=== PATIENT | male | born 1970 | race Hispanic/Latino ===

== ENCOUNTER 2021-03-28 16:14 | Inpatient (IN) | payer OTHER, SELFPAY ==
[2021-03-28] MEDS ORDERED: LACTATED RINGERS 1,000 ML IV ONE ×3 (18:52→18:55)
[2021-03-28 19:07] LABS: Basophils % (Auto) 0.6 % (0.0-1.8); Eosinophils # (Auto) 0.1 K/mm3 (0.0-0.4); Eosinophils % (Auto) 1.3 % (0.0-4.3); Hematocrit 44.5 % (35.5-45.6); Lymphocytes # (Auto) 1.1 K/mm3 (1.2-5.4); Lymphocytes % (Auto) 21.8 % (13.4-35.0); Mean Corpuscular HGB Conc 34 % (32-34); Mean Corpuscular Volume 88 fl (84-94); Monocytes # (Auto) 0.4 K/mm3 (0.0-0.8); Monocytes % (Auto) 7.5 % (0.0-7.3); Platelet Count 227 K/mm3 (140-440); Red Blood Count 5.07 M/mm3 (3.65-5.03); Red Cell Distribution Width 13.5 % (13.2-15.2)
[2021-03-28 19:10] LABS: Bilirubin,Urine NEG (Negative); Blood,Urine NEG (Negative); Color,Urine Colorless (Yellow); Protein,Urine <15 mg/dL mg/dL (Negative); Urobilinogen,Urine < 2.0 mg/dL (<2.0); WBC,Urine < 1.0 /HPF (0.0-6.0)
[2021-03-28 19:34] LABS: Amphetamine Screen,Urine Negative; Benzodiazepines Screen,Urine Negative; Cannabinoid Screen,Urine Negative; Cocaine Screen,Urine Negative; Methadone Screen,Urine Negative; Opiate Screen,Urine Negative
[2021-03-28 19:35] LABS: Alanine Aminotransferase 31 units/L (7-56); Albumin 5.1 g/dL (3.9-5); Blood Urea Nitrogen 17 mg/dL (9-20); Calcium 10.7 mg/dL (8.4-10.2); Hemolysis Index 9
[2021-03-28 19:57] LABS: BUN/Creatinine Ratio 24
[2021-03-28] MEDS ORDERED: INSULIN REGULAR, HUMAN 100 UNITS/1 ML IV ONE (20:07)
--- NOTE | 2021-03-28 20:38 | Emergency Department Report ---
HPI - General Chief Complaint: Hyperglycemia Time Seen by Provider: 03/28/21 18:03 - HPI HPI: 50-year-old male with history of diabetes mellitus on insulin presents due to suicidal ideation. Patient states that he has been out of his insulin for the last month. He says that he has had worsening depression and wants to kill himself by cutting his wrists. He denies homicidal ideation, auditory hallucinations, or visual hallucinations. He also denies any physical complaints at this time other than those related to his chronic peripheral neuropathy. He denies any fever/chills, headache, vision change, lightheadedness, chest pain, shortness of breath, cough, abdominal pain, nausea/vomiting, dysuria, frequent urination, or any other complaints. ED Past Medical Hx - Past Medical History Previous Medical History?: Yes Hx Hypertension: Yes Hx Diabetes: Yes Hx Psychiatric Treatment: Yes - Surgical History Past Surgical History?: Yes Additional Surgical History: GB - Medications Home Medications: Home Medications Medication Instructions Recorded Confirmed Last Taken Type Cymbalta BID 03/29/21 03/29/21 09:00 History Gabapentin TID 03/29/21 03/28/21 History ED Review of Systems ROS: Stated complaint: ELEVATED BLOOD GLUCOSE Other details as noted in HPI Constitutional: denies: chills, fever Eyes: denies: eye pain, vision change ENT: denies: throat pain, congestion Respiratory: denies: cough, shortness of breath Cardiovascular: denies: chest pain, syncope Endocrine: denies: increased thirst, increased urine Gastrointestinal: denies: abdominal pain, nausea, vomiting Genitourinary: denies: dysuria Musculoskeletal: denies: back pain, myalgia Skin: denies: rash Neurological: denies: headache, weakness, numbness Psychiatric: depression, suicidal thoughts. denies: auditory hallucinations, visual hallucinations, homicidal thoughts Physical Exam - Physical Exam Vital Signs: Vital Signs 03/28/21 03/28/21 18:46 19:00 Pulse Rate 89 84 Respiratory 12 16 Rate Blood Pressure 130/93 135/81 [Right] O2 Sat by Pulse 97 96 Oximetry Physical Exam: GENERAL: Well developed and well nourished. No acute distress HEENT: Normocephalic. No obvious signs of trauma. Very dry mucous membranes. EYES: Extraocular movements are intact. Pupils are equal round and reactive to light bilaterally NECK: Supple. Trachea is midline. LUNGS: Nonlabored breathing. Equal chest rise bilaterally. Clear to auscultation bilaterally. HEART/CARDIOVASCULAR: Regular rate and rhythm. No murmurs or rubs. VASCULAR: 2+ peripheral pulses. ABDOMEN: Abdomen is soft and nondistended. There is no significant tenderness, guarding or rebound. SKIN: Skin is warm and dry NEURO: Patient is awake, alert, and oriented. 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 No focal deficits. Normal motor and sensory exam throughout with the exception of decreased sensation to light touch over bilateral distal lower extremities which is chronic and related to neuropathy according to the patient. Normal speech. MUSCULOSKELETAL: No obvious deformities. There is a left knee brace in place. No significant tenderness. . ED Course Vital Signs 03/28/21 03/28/21 18:46 19:00 Pulse Rate 89 84 Respiratory 12 16 Rate Blood Pressure 130/93 135/81 [Right] O2 Sat by Pulse 97 96 Oximetry ED Medical Decision Making - Lab Data Result diagrams: 03/28/21 18:52 03/29/21 05:22 Lab Results 03/28/21 03/28/21 03/28/21 Range/Units 08:27 16:28 18:50 WBC (4.5-11.0) K/mm3 RBC (3.65-5.03) M/mm3 Hgb (11.8-15.2) gm/dl Hct (35.5-45.6) % MCV (84-94) fl MCH (28-32) pg MCHC (32-34) % RDW (13.2-15.2) % Plt Count (140-440) K/mm3 Lymph % (Auto) (13.4-35.0) % [place] % (Auto) (0.0-7.3) % Eos % (Auto) (0.0-4.3) % Baso % (Auto) (0.0-1.8) % Lymph # (Auto) (1.2-5.4) K/mm3 [place] # (Auto) (0.0-0.8) K/mm3 Eos # (Auto) (0.0-0.4) K/mm3 Baso # (Auto) (0.0-0.1) K/mm3 Seg Neutrophils % (40.0-70.0) % Seg Neutrophils # (1.8-7.7) K/mm3 VBG pH (7.320-7.420) Sodium 130 L (137-145) mmol/L Potassium 4.8 (3.6-5.0) mmol/L Chloride 87.7 L (98-107) mmol/L Carbon Dioxide 26 (22-30) mmol/L Anion Gap 21 mmol/L BUN 17 (9-20) mg/dL Creatinine 0.7 L (0.8-1.3) mg/dL Estimated GFR > 60 ml/min BUN/Creatinine Ratio 24 % Glucose 647 H* (75-100) mg/dL POC Glucose > 600 H (70-105) mg/dL Hemoglobin A1c (4-6) % Ketones Quantitative (Negative) Calcium 10.7 H (8.4-10.2) mg/dL Phosphorus (2.5-4.5) mg/dL Magnesium (1.7-2.3) mg/dL Total Bilirubin 0.30 (0.1-1.2) mg/dL AST 23 (5-40) units/L ALT 31 (7-56) units/L Alkaline Phosphatase 265 H (35-129) units/L Total Protein 8.3 H (6.3-8.2) g/dL Albumin 5.1 H (3.9-5) g/dL Albumin/Globulin Ratio 1.6 % Urine Color (Yellow) Urine Turbidity (Clear) Urine pH (5.0-7.0) Ur Specific Sylvester (1.003-1.030) Urine Protein (Negative) mg/dL Urine Glucose (UA) (Negative) mg/dL Urine Ketones (Negative) mg/dL Urine Blood (Negative) Urine Nitrite (Negative) Urine Bilirubin (Negative) Urine Urobilinogen (<2.0) mg/dL Ur Leukocyte Esterase (Negative) Urine WBC (Auto) (0.0-6.0) /HPF Urine RBC (Auto) (0.0-6.0) /HPF Salicylates (2.8-20.0) mg/dL Urine Opiates Screen Urine Methadone Screen Acetaminophen (10.0-30.0) ug/mL Ur Barbiturates Screen Ur Phencyclidine Scrn Ur Amphetamines Screen U Benzodiazepines Scrn Urine Cocaine Screen U Marijuana (THC) Screen Drugs of Abuse Note Plasma/Serum Alcohol (0-0.07) % Coronavirus (PCR) Negative (Negative) 03/28/21 03/28/21 03/28/21 Range/Units 18:52 18:52 18:52 WBC 5.0 (4.5-11.0) K/mm3 RBC 5.07 H (3.65-5.03) M/mm3 Hgb 15.0 (11.8-15.2) gm/dl Hct 44.5 (35.5-45.6) % MCV 88 (84-94) fl MCH 30 (28-32) pg MCHC 34 (32-34) % RDW 13.5 (13.2-15.2) % Plt Count 227 (140-440) K/mm3 Lymph % (Auto) 21.8 (13.4-35.0) % [place] % (Auto) 7.5 H (0.0-7.3) % Eos % (Auto) 1.3 (0.0-4.3) % Baso % (Auto) 0.6 (0.0-1.8) % Lymph # (Auto) 1.1 L (1.2-5.4) K/mm3 [place] # (Auto) 0.4 (0.0-0.8) K/mm3 Eos # (Auto) 0.1 (0.0-0.4) K/mm3 Baso # (Auto) 0.0 (0.0-0.1) K/mm3 Seg Neutrophils % 68.8 (40.0-70.0) % Seg Neutrophils # 3.4 (1.8-7.7) K/mm3 VBG pH (7.320-7.420) Sodium (137-145) mmol/L Potassium (3.6-5.0) mmol/L Chloride (98-107) mmol/L Carbon Dioxide (22-30) mmol/L Anion Gap mmol/L BUN (9-20) mg/dL Creatinine (0.8-1.3) mg/dL Estimated GFR ml/min BUN/Creatinine Ratio % Glucose (75-100) mg/dL POC Glucose (70-105) mg/dL Hemoglobin A1c (4-6) % Ketones Quantitative (Negative) Calcium (8.4-10.2) mg/dL Phosphorus (2.5-4.5) mg/dL Magnesium (1.7-2.3) mg/dL Total Bilirubin (0.1-1.2) mg/dL AST (5-40) units/L ALT (7-56) units/L Alkaline Phosphatase (35-129) units/L Total Protein (6.3-8.2) g/dL Albumin (3.9-5) g/dL Albumin/Globulin Ratio % Urine Color Colorless (Yellow) Urine Turbidity Clear (Clear) Urine pH 5.0 (5.0-7.0) Ur Specific Sylvester 1.027 (1.003-1.030) Urine Protein <15 mg/dl (Negative) mg/dL Urine Glucose (UA) >=500 (Negative) mg/dL Urine Ketones 20 (Negative) mg/dL Urine Blood Neg (Negative) Urine Nitrite Neg (Negative) Urine Bilirubin Neg (Negative) Urine Urobilinogen < 2.0 (<2.0) mg/dL Ur Leukocyte Esterase Neg (Negative) Urine WBC (Auto) < 1.0 (0.0-6.0) /HPF Urine RBC (Auto) 1.0 (0.0-6.0) /HPF Salicylates (2.8-20.0) mg/dL Urine Opiates Screen Negative Urine Methadone Screen Negative Acetaminophen (10.0-30.0) ug/mL Ur Barbiturates Screen Negative Ur Phencyclidine Scrn Negative Ur Amphetamines Screen Negative U Benzodiazepines Scrn Negative Urine Cocaine Screen Negative U Marijuana (THC) Screen Negative Drugs of Abuse Note Disclamer Plasma/Serum Alcohol (0-0.07) % Coronavirus (PCR) (Negative) 03/28/21 03/28/21 03/28/21 Range/Units 18:52 18:52 18:52 WBC (4.5-11.0) K/mm3 RBC (3.65-5.03) M/mm3 Hgb (11.8-15.2) gm/dl Hct (35.5-45.6) % MCV (84-94) fl MCH (28-32) pg MCHC (32-34) % RDW (13.2-15.2) % Plt Count (140-440) K/mm3 Lymph % (Auto) (13.4-35.0) % [place] % (Auto) (0.0-7.3) % Eos % (Auto) (0.0-4.3) % Baso % (Auto) (0.0-1.8) % Lymph # (Auto) (1.2-5.4) K/mm3 [place] # (Auto) (0.0-0.8) K/mm3 Eos # (Auto) (0.0-0.4) K/mm3 Baso # (Auto) (0.0-0.1) K/mm3 Seg Neutrophils % (40.0-70.0) % Seg Neutrophils # (1.8-7.7) K/mm3 VBG pH (7.320-7.420) Sodium (137-145) mmol/L Potassium (3.6-5.0) mmol/L Chloride (98-107) mmol/L Carbon Dioxide (22-30) mmol/L Anion Gap mmol/L BUN (9-20) mg/dL Creatinine (0.8-1.3) mg/dL Estimated GFR ml/min BUN/Creatinine Ratio % Glucose (75-100) mg/dL POC Glucose (70-105) mg/dL Hemoglobin A1c (4-6) % Ketones Quantitative (Negative) Calcium (8.4-10.2) mg/dL Phosphorus (2.5-4.5) mg/dL Magnesium (1.7-2.3) mg/dL Total Bilirubin (0.1-1.2) mg/dL AST (5-40) units/L ALT (7-56) units/L Alkaline Phosphatase (35-129) units/L Total Protein (6.3-8.2) g/dL Albumin (3.9-5) g/dL Albumin/Globulin Ratio % Urine Color (Yellow) Urine Turbidity (Clear) Urine pH (5.0-7.0) Ur Specific Sylvester (1.003-1.030) Urine Protein (Negative) mg/dL Urine Glucose (UA) (Negative) mg/dL Urine Ketones (Negative) mg/dL Urine Blood (Negative) Urine Nitrite (Negative) Urine Bilirubin (Negative) Urine Urobilinogen (<2.0) mg/dL Ur Leukocyte Esterase (Negative) Urine WBC (Auto) (0.0-6.0) /HPF Urine RBC (Auto) (0.0-6.0) /HPF Salicylates < 0.3 L (2.8-20.0) mg/dL Urine Opiates Screen Urine Methadone Screen Acetaminophen 5.0 L (10.0-30.0) ug/mL Ur Barbiturates Screen Ur Phencyclidine Scrn Ur Amphetamines Screen U Benzodiazepines Scrn Urine Cocaine Screen U Marijuana (THC) Screen Drugs of Abuse Note Plasma/Serum Alcohol < 0.01 (0-0.07) % Coronavirus (PCR) (Negative) 03/28/21 03/28/21 03/28/21 Range/Units 18:52 18:52 21:01 WBC (4.5-11.0) K/mm3 RBC (3.65-5.03) M/mm3 Hgb (11.8-15.2) gm/dl Hct (35.5-45.6) % MCV (84-94) fl MCH (28-32) pg MCHC (32-34) % RDW (13.2-15.2) % Plt Count (140-440) K/mm3 Lymph % (Auto) (13.4-35.0) % [place] % (Auto) (0.0-7.3) % Eos % (Auto) (0.0-4.3) % Baso % (Auto) (0.0-1.8) % Lymph # (Auto) (1.2-5.4) K/mm3 [place] # (Auto) (0.0-0.8) K/mm3 Eos # (Auto) (0.0-0.4) K/mm3 Baso # (Auto) (0.0-0.1) K/mm3 Seg Neutrophils % (40.0-70.0) % Seg Neutrophils # (1.8-7.7) K/mm3 VBG pH 7.299 L (7.320-7.420) Sodium (137-145) mmol/L Potassium (3.6-5.0) mmol/L Chloride (98-107) mmol/L Carbon Dioxide (22-30) mmol/L Anion Gap mmol/L BUN (9-20) mg/dL Creatinine (0.8-1.3) mg/dL Estimated GFR ml/min BUN/Creatinine Ratio % Glucose (75-100) mg/dL POC Glucose (70-105) mg/dL Hemoglobin A1c (4-6) % Ketones Quantitative Small (Negative) Calcium (8.4-10.2) mg/dL Phosphorus 3.00 (2.5-4.5) mg/dL Magnesium 1.70 (1.7-2.3) mg/dL Total Bilirubin (0.1-1.2) mg/dL AST (5-40) units/L ALT (7-56) units/L Alkaline Phosphatase (35-129) units/L Total Protein (6.3-8.2) g/dL Albumin (3.9-5) g/dL Albumin/Globulin Ratio % Urine Color (Yellow) Urine Turbidity (Clear) Urine pH (5.0-7.0) Ur Specific Sylvester (1.003-1.030) Urine Protein (Negative) mg/dL Urine Glucose (UA) (Negative) mg/dL Urine Ketones (Negative) mg/dL Urine Blood (Negative) Urine Nitrite (Negative) Urine Bilirubin (Negative) Urine Urobilinogen (<2.0) mg/dL Ur Leukocyte Esterase (Negative) Urine WBC (Auto) (0.0-6.0) /HPF Urine RBC (Auto) (0.0-6.0) /HPF Salicylates (2.8-20.0) mg/dL Urine Opiates Screen Urine Methadone Screen Acetaminophen (10.0-30.0) ug/mL Ur Barbiturates Screen Ur Phencyclidine Scrn Ur Amphetamines Screen U Benzodiazepines Scrn Urine Cocaine Screen U Marijuana (THC) Screen Drugs of Abuse Note Plasma/Serum Alcohol (0-0.07) % Coronavirus (PCR) (Negative) 03/28/21 03/28/21 03/28/21 Range/Units 21:01 22:33 23:00 WBC (4.5-11.0) K/mm3 RBC (3.65-5.03) M/mm3 Hgb (11.8-15.2) gm/dl Hct (35.5-45.6) % MCV (84-94) fl MCH (28-32) pg MCHC (32-34) % RDW (13.2-15.2) % Plt Count (140-440) K/mm3 Lymph % (Auto) (13.4-35.0) % [place] % (Auto) (0.0-7.3) % Eos % (Auto) (0.0-4.3) % Baso % (Auto) (0.0-1.8) % Lymph # (Auto) (1.2-5.4) K/mm3 [place] # (Auto) (0.0-0.8) K/mm3 Eos # (Auto) (0.0-0.4) K/mm3 Baso # (Auto) (0.0-0.1) K/mm3 Seg Neutrophils % (40.0-70.0) % Seg Neutrophils # (1.8-7.7) K/mm3 VBG pH (7.320-7.420) Sodium 136 L 136 L (137-145) mmol/L Potassium 3.5 L D 3.5 L (3.6-5.0) mmol/L Chloride 98.0 98 (98-107) mmol/L Carbon Dioxide 29 29 (22-30) mmol/L Anion Gap 13 13 mmol/L BUN 14 14 (9-20) mg/dL Creatinine 0.6 L 0.6 L (0.8-1.3) mg/dL Estimated GFR > 60 > 60 ml/min BUN/Creatinine Ratio 23 23 % Glucose 287 H 287 H (75-100) mg/dL POC Glucose 234 H (70-105) mg/dL Hemoglobin A1c (4-6) % Ketones Quantitative (Negative) Calcium 9.2 9.2 (8.4-10.2) mg/dL Phosphorus (2.5-4.5) mg/dL Magnesium (1.7-2.3) mg/dL Total Bilirubin (0.1-1.2) mg/dL AST (5-40) units/L ALT (7-56) units/L Alkaline Phosphatase (35-129) units/L Total Protein (6.3-8.2) g/dL Albumin (3.9-5) g/dL Albumin/Globulin Ratio % Urine Color (Yellow) Urine Turbidity (Clear) Urine pH (5.0-7.0) Ur Specific Sylvester (1.003-1.030) Urine Protein (Negative) mg/dL Urine Glucose (UA) (Negative) mg/dL Urine Ketones (Negative) mg/dL Urine Blood (Negative) Urine Nitrite (Negative) Urine Bilirubin (Negative) Urine Urobilinogen (<2.0) mg/dL Ur Leukocyte Esterase (Negative) Urine WBC (Auto) (0.0-6.0) /HPF Urine RBC (Auto) (0.0-6.0) /HPF Salicylates (2.8-20.0) mg/dL Urine Opiates Screen Urine Methadone Screen Acetaminophen (10.0-30.0) ug/mL Ur Barbiturates Screen Ur Phencyclidine Scrn Ur Amphetamines Screen U Benzodiazepines Scrn Urine Cocaine Screen U Marijuana (THC) Screen Drugs of Abuse Note Plasma/Serum Alcohol (0-0.07) % Coronavirus (PCR) (Negative) 03/29/21 03/29/21 03/29/21 Range/Units 04:12 05:22 05:22 WBC (4.5-11.0) K/mm3 RBC (3.65-5.03) M/mm3 Hgb (11.8-15.2) gm/dl Hct (35.5-45.6) % MCV (84-94) fl MCH (28-32) pg MCHC (32-34) % RDW (13.2-15.2) % Plt Count (140-440) K/mm3 Lymph % (Auto) (13.4-35.0) % [place] % (Auto) (0.0-7.3) % Eos % (Auto) (0.0-4.3) % Baso % (Auto) (0.0-1.8) % Lymph # (Auto) (1.2-5.4) K/mm3 [place] # (Auto) (0.0-0.8) K/mm3 Eos # (Auto) (0.0-0.4) K/mm3 Baso # (Auto) (0.0-0.1) K/mm3 Seg Neutrophils % (40.0-70.0) % Seg Neutrophils # (1.8-7.7) K/mm3 VBG pH (7.320-7.420) Sodium 139 (137-145) mmol/L Potassium 4.2 (3.6-5.0) mmol/L Chloride 100.8 (98-107) mmol/L Carbon Dioxide 27 (22-30) mmol/L Anion Gap 15 mmol/L BUN 14 (9-20) mg/dL Creatinine 0.5 L (0.8-1.3) mg/dL Estimated GFR > 60 ml/min BUN/Creatinine Ratio 28 % Glucose 261 H (75-100) mg/dL POC Glucose 245 H (70-105) mg/dL Hemoglobin A1c 13.3 H (4-6) % Ketones Quantitative (Negative) Calcium 8.9 (8.4-10.2) mg/dL Phosphorus 2.80 (2.5-4.5) mg/dL Magnesium 1.50 L (1.7-2.3) mg/dL Total Bilirubin (0.1-1.2) mg/dL AST (5-40) units/L ALT (7-56) units/L Alkaline Phosphatase (35-129) units/L Total Protein (6.3-8.2) g/dL Albumin (3.9-5) g/dL Albumin/Globulin Ratio % Urine Color (Yellow) Urine Turbidity (Clear) Urine pH (5.0-7.0) Ur Specific Sylvester (1.003-1.030) Urine Protein (Negative) mg/dL Urine Glucose (UA) (Negative) mg/dL Urine Ketones (Negative) mg/dL Urine Blood (Negative) Urine Nitrite (Negative) Urine Bilirubin (Negative) Urine Urobilinogen (<2.0) mg/dL Ur Leukocyte Esterase (Negative) Urine WBC (Auto) (0.0-6.0) /HPF Urine RBC (Auto) (0.0-6.0) /HPF Salicylates (2.8-20.0) mg/dL Urine Opiates Screen Urine Methadone Screen Acetaminophen (10.0-30.0) ug/mL Ur Barbiturates Screen Ur Phencyclidine Scrn Ur Amphetamines Screen U Benzodiazepines Scrn Urine Cocaine Screen U Marijuana (THC) Screen Drugs of Abuse Note Plasma/Serum Alcohol (0-0.07) % Coronavirus (PCR) (Negative) 03/29/21 03/29/21 Range/Units 07:56 10:57 WBC (4.5-11.0) K/mm3 RBC (3.65-5.03) M/mm3 Hgb (11.8-15.2) gm/dl Hct (35.5-45.6) % MCV (84-94) fl MCH (28-32) pg MCHC (32-34) % RDW (13.2-15.2) % Plt Count (140-440) K/mm3 Lymph % (Auto) (13.4-35.0) % [place] % (Auto) (0.0-7.3) % Eos % (Auto) (0.0-4.3) % Baso % (Auto) (0.0-1.8) % Lymph # (Auto) (1.2-5.4) K/mm3 [place] # (Auto) (0.0-0.8) K/mm3 Eos # (Auto) (0.0-0.4) K/mm3 Baso # (Auto) (0.0-0.1) K/mm3 Seg Neutrophils % (40.0-70.0) % Seg Neutrophils # (1.8-7.7) K/mm3 VBG pH (7.320-7.420) Sodium (137-145) mmol/L Potassium (3.6-5.0) mmol/L Chloride (98-107) mmol/L Carbon Dioxide (22-30) mmol/L Anion Gap mmol/L BUN (9-20) mg/dL Creatinine (0.8-1.3) mg/dL Estimated GFR ml/min BUN/Creatinine Ratio % Glucose (75-100) mg/dL POC Glucose 253 H 279 H (70-105) mg/dL Hemoglobin A1c (4-6) % Ketones Quantitative (Negative) Calcium (8.4-10.2) mg/dL Phosphorus (2.5-4.5) mg/dL Magnesium (1.7-2.3) mg/dL Total Bilirubin (0.1-1.2) mg/dL AST (5-40) units/L ALT (7-56) units/L Alkaline Phosphatase (35-129) units/L Total Protein (6.3-8.2) g/dL Albumin (3.9-5) g/dL Albumin/Globulin Ratio % Urine Color (Yellow) Urine Turbidity (Clear) Urine pH (5.0-7.0) Ur Specific Sylvester (1.003-1.030) Urine Protein (Negative) mg/dL Urine Glucose (UA) (Negative) mg/dL Urine Ketones (Negative) mg/dL Urine Blood (Negative) Urine Nitrite (Negative) Urine Bilirubin (Negative) Urine Urobilinogen (<2.0) mg/dL Ur Leukocyte Esterase (Negative) Urine WBC (Auto) (0.0-6.0) /HPF Urine RBC (Auto) (0.0-6.0) /HPF Salicylates (2.8-20.0) mg/dL Urine Opiates Screen Urine Methadone Screen Acetaminophen (10.0-30.0) ug/mL Ur Barbiturates Screen Ur Phencyclidine Scrn Ur Amphetamines Screen U Benzodiazepines Scrn Urine Cocaine Screen U Marijuana (THC) Screen Drugs of Abuse Note Plasma/Serum Alcohol (0-0.07) % Coronavirus (PCR) (Negative) - Medical Decision Making 50-year-old male presenting for suicidal ideation. However, the patient has diabetes mellitus and has been out of his insulin for the past month. Initial fingerstick blood glucose was too high to read. As such, I am suspicious for possible DKA versus HHS. However, the patient reports no physical symptoms or complaints. On physical exam he does have very dry mucous membranes. The remainder of his physical exam is unremarkable. The patient reports SI with a plan to commit suicide by cutting his wrist. He has no HI, auditory/visual hallucinations. 1013 order was signed and initiated. We will send a full set of labs. We will give 3 L of IV fluids and follow-up the diagnostic studies. Labs have returned and reveal no significant leukocytosis or anemia. He has pseudohyponatremia with serum sodium of 130. Potassium is normal at 4.8. Patient appears to have a mixed acid-base disturbance with bicarb of 26 and anion gap of 21. His venous pH is 7.29. His blood glucose is 647. Labs are most consistent with mild DKA. We will thus administer 10 units of IV insulin and initiate DKA protocol including initiation of insulin IV continuous infusion at 0.1 units/kg/h. Given the patient's current medical diagnosis, he will be admitted medically and stabilized so that he can be medically cleared for psychiatric placement. I spoke with Dr. Parra regarding the case and he accepts the patient for admission and will assume care. After administration of IV insulin, the patient's blood sugar is less than 300. Therefore I have canceled the order for a continuous insulin drip. The admitting provider was notified. Critical Care Time: Yes (40) Critical care time in (mins) excluding proc time.: 40 Critical care attestation.: If time is entered above; I have spent that time in minutes in the direct care of this critically ill patient, excluding procedure time. Critical care time was spent in the assessment/evaluation and management of crit ical diabetic ketoacidosis requiring administration of IV insulin ED Disposition Clinical Impression: DKA (diabetic ketoacidoses), Suicidal ideations Disposition: [id number] OP ADMIT IP TO THIS HOSP Is pt being admited?: Yes Condition: Serious
[2021-03-28] MEDS ORDERED: DEXTROSE 50% IN WATER (25GM) 50 ML SYRINGE IV PRN (20:49)
[2021-03-28] MEDS ORDERED: INSULIN REGULAR, HUMAN 100 UNITS in SODIUM CHLORIDE 0.9% 99 ML IV SCH (21:00)
[2021-03-28 22:08] LABS: Blood Urea Nitrogen 14 mg/dL (9-20); Calcium 9.2 mg/dL (8.4-10.2); Hemolysis Index 13
[2021-03-28 22:10] LABS: BUN/Creatinine Ratio 23
[2021-03-28] MEDS ORDERED: SODIUM CHLORIDE 0.9% 1000 ML 1,000 ML IV SCH (22:30)
--- NOTE | 2021-03-28 22:37 | History and Physical Report ---
History of Present Illness Date of examination: 03/28/21 Date of admission: 03/28/21 21:41 Chief complaint: Suicidal ideations History of present illness: 50-year-old white male with known history of hypertension, diabetes mellitus who presents to the emergency room for medical clearance because of suicidal ideations was found to have elevated blood glucose. Patient indicates that he has been out of his insulin for about a month. He denies any fever or chills, no chest pain or shortness of breath, no nausea or vomiting, no abdominal pain, no polydipsia, no increased thirst and no polyphagia. Work-up in the emergency room reveals a blood glucose in the 600s and was found to be in mild DKA. Patient was subsequently started on IV fluid and given insulin. Blood glucose improved to the 200s with significant improvements in the anion gap. Patient therefore been admitted with hyperglycemia and suicidal ideations. Past History Past Medical History: diabetes, hypertension, other (history of depression) Past Surgical History: cholecystectomy Social history: no significant social history Family history: no significant family history Medications and Allergies Allergies Allergy/AdvReac Type Severity Reaction Status Date / Time No Known Allergies Allergy Verified 03/28/21 21:13 Home Medications Medication Instructions Recorded Confirmed Last Taken Type No Known Home Medications [No 03/28/21 03/28/21 Unknown History Reported Home Medications] Active Meds: Active Medications Dextrose (Dextrose 50% In Water (25gm) 50 Ml Syringe) 0 ml IV Q30MIN PRN; Protocol PRN Reason: Hypoglycemia Insulin Human Regular 100 (units/ Sodium Chloride) 100 mls @ 1 mls/hr IV TITR EMIGDIO; Protocol Review of Systems Constitutional: no fever, no chills Ears, nose, mouth and throat: no nasal congestion, no sore throat Cardiovascular: no chest pain, no palpitations Respiratory: no cough, no shortness of breath Gastrointestinal: no abdominal pain, no nausea, no vomiting, no diarrhea Genitourinary Male: no hematuria, no flank pain Musculoskeletal: no neck pain, no low back pain Integumentary: no rash, no pruritis Neurological: no headaches, no confusion Psychiatric: suicidal ideation, depression, no anxiety, no confusion Endocrine: no polyphagia, no polydipsia, no polyuria Exam - Constitutional Vitals: Temp Pulse Resp BP Pulse Ox 84 16 135/81 96 03/28/21 19:00 03/28/21 19:00 03/28/21 19:00 03/28/21 19:00 General appearance: Present: no acute distress, well-nourished - EENT Eyes: Present: PERRL, EOM intact. Absent: scleral icterus ENT: hearing intact, clear oral mucosa, dentition normal - Neck Neck: Present: supple, normal ROM - Respiratory Respiratory effort: normal Respiratory: bilateral: CTA - Cardiovascular Rhythm: regular Heart Sounds: Present: S1 & S2. Absent: gallop, systolic murmur, diastolic murmur, rub, click - Extremities Extremities: no ischemia, pulses intact, pulses symmetrical, No edema, normal temperature, normal color, Full ROM Peripheral Pulses: within normal limits - Abdominal General gastrointestinal: Present: soft, non-tender, non-distended, normal bowel sounds. Absent: mass - Integumentary Integumentary: Present: clear, warm, dry. Absent: rash - Musculoskeletal Musculoskeletal: strength equal bilaterally - Psychiatric Psychiatric: appropriate mood/affect, intact judgment & insight, memory intact, cooperative - Neurologic Neurologic: CNII-XII intact, no focal deficits, moves all extremities - Additional findings Additional findings: Skin: Scar of healed laceration on the right wrist Results - Labs CBC & Chem 7: 03/28/21 18:52 03/28/21 21:01 Labs: Abnormal lab results 03/28/21 03/28/21 03/28/21 Range/Units 16:28 18:50 18:52 RBC 5.07 H (3.65-5.03) M/mm3 [place] % (Auto) 7.5 H (0.0-7.3) % Lymph # (Auto) 1.1 L (1.2-5.4) K/mm3 VBG pH (7.320-7.420) Sodium 130 L (137-145) mmol/L Potassium (3.6-5.0) mmol/L Chloride 87.7 L (98-107) mmol/L Creatinine 0.7 L (0.8-1.3) mg/dL Glucose 647 H* (75-100) mg/dL POC Glucose > 600 H (70-105) mg/dL Calcium 10.7 H (8.4-10.2) mg/dL Alkaline Phosphatase 265 H (35-129) units/L Total Protein 8.3 H (6.3-8.2) g/dL Albumin 5.1 H (3.9-5) g/dL Salicylates (2.8-20.0) mg/dL Acetaminophen (10.0-30.0) ug/mL 03/28/21 03/28/21 03/28/21 Range/Units 18:52 18:52 18:52 RBC (3.65-5.03) M/mm3 [place] % (Auto) (0.0-7.3) % Lymph # (Auto) (1.2-5.4) K/mm3 VBG pH 7.299 L (7.320-7.420) Sodium (137-145) mmol/L Potassium (3.6-5.0) mmol/L Chloride (98-107) mmol/L Creatinine (0.8-1.3) mg/dL Glucose (75-100) mg/dL POC Glucose (70-105) mg/dL Calcium (8.4-10.2) mg/dL Alkaline Phosphatase (35-129) units/L Total Protein (6.3-8.2) g/dL Albumin (3.9-5) g/dL Salicylates < 0.3 L (2.8-20.0) mg/dL Acetaminophen 5.0 L (10.0-30.0) ug/mL 03/28/21 Range/Units 21:01 RBC (3.65-5.03) M/mm3 [place] % (Auto) (0.0-7.3) % Lymph # (Auto) (1.2-5.4) K/mm3 VBG pH (7.320-7.420) Sodium 136 L (137-145) mmol/L Potassium 3.5 L D (3.6-5.0) mmol/L Chloride (98-107) mmol/L Creatinine 0.6 L (0.8-1.3) mg/dL Glucose 287 H (75-100) mg/dL POC Glucose (70-105) mg/dL Calcium (8.4-10.2) mg/dL Alkaline Phosphatase (35-129) units/L Total Protein (6.3-8.2) g/dL Albumin (3.9-5) g/dL Salicylates (2.8-20.0) mg/dL Acetaminophen (10.0-30.0) ug/mL Assessment and Plan - Patient Problems (1) DKA (diabetic ketoacidoses) Current Visit: Yes Status: Acute Plan to address problem: Patient was started on IV fluid and also given insulin. Blood glucose has improved significantly with improvement in anion gap. We will monitor Accu-Cheks closely. We will also check hemoglobin A1c. Patient will also receive diabetic education. (2) Suicidal ideations Current Visit: Yes Status: Acute Plan to address problem: Patient will be placed on suicide precautions. Patient currently on 1013. Consult will be placed to mental health for further evaluation and recommendation. (3) Hypertension Current Visit: Yes Status: Acute Plan to address problem: Blood pressure stable We will resume routine home medications once reconciled. (4) DVT prophylaxis Current Visit: Yes Status: Acute Plan to address problem: Patient placed on subcutaneous heparin. (5) Full code status Current Visit: Yes Status: Acute Plan to address problem: Patient is full code.
[2021-03-28] MEDS ORDERED: D5W/0.45% NACL/KCL 20 MEQ 20 MEQ/1,000 ML BAG IV SCH (23:00)
[2021-03-29 05:58] LABS: Blood Urea Nitrogen 14 mg/dL (9-20); Calcium 8.9 mg/dL (8.4-10.2); Hemolysis Index 7
[2021-03-29 06:03] LABS: BUN/Creatinine Ratio 28
[2021-03-29] MEDS: HEPARIN 5,000 UNIT/1 ML VIAL SUB-Q SCH ×3 (07:19→22:56)
[2021-03-29 07:45] LABS: BUN/Creatinine Ratio 23; Blood Urea Nitrogen 14 mg/dL (9-20); Calcium 9.2 mg/dL (8.4-10.2); Hemolysis Index 13
[2021-03-29] MEDS ORDERED: INSULIN LISPRO 100 UNIT/ML SUB-Q SCH (09:00)
[2021-03-29] MEDS ORDERED: MAGNESIUM SULFATE 4 GM/100 ML BAG IV ONE (09:00)
[2021-03-29] MEDS: INSULIN NPH/REGULAR 70/30 INJ SUB-Q SCH ×2 (11:05→17:19)
[2021-03-29] MEDS: INSULIN REGULAR, HUMAN 100 UNITS/1 ML SUB-Q SCH ×3 (11:06→22:59)
--- NOTE | 2021-03-29 15:48 | Progress Note ---
Assessment and Plan 50-year-old white male with known history of hypertension, diabetes mellitus who presents to the emergency room for suicidal ideations was found to have elevated blood glucose and admitted for DKA and suicidal ideation. -- DKA (diabetic ketoacidoses) Patient was started on IV fluid and also given insulin. Blood glucose has improved significantly with improvement in anion gap. We will monitor Accu-Cheks closely. We will also check hemoglobin A1c. Patient will also receive diabetic education. Continue to adjust insulin dose for better glycemic control -- Suicidal ideations Patient placed on suicide precautions. Patient currently on 1013. Consult will be placed to mental health for further evaluation and recommendation. -- Hypertension: Blood pressure stable resumed routine home medications once reconciled. -- DVT prophylaxis Patient placed on subcutaneous heparin. --Full code status Patient is full code. Daily clinical course: 03/29/21: BG improved. Continue to adjust insulin dose for better glycemic control. Patient with public safety telecommunicator, psych consulted -pending evaluation. We will transfer to telemetry. Patient states that he is ready to start a sexual offender, homeless and jobless. product design manager consulted for assistance. Subjective Date of service: 03/29/21 Interval history: Patient seen and examined. Medical records and medication list reviewed. No acute event overnight noted by the RN. Patient denies any chest pain or difficulty breathing. Discussed plan of care at bedside with patient. Objective - Exam Narrative Exam: General appearance: Present: no acute distress, well-nourished - EENT Eyes: Present: PERRL, EOM intact. Absent: scleral icterus ENT: hearing intact, clear oral mucosa, dentition normal - Neck Neck: Present: supple, normal ROM - Respiratory Respiratory effort: normal Respiratory: bilateral: CTA - Cardiovascular Rhythm: regular Heart Sounds: Present: S1 & S2. Absent: gallop, systolic murmur, diastolic murmur, rub, click - Extremities Extremities: no ischemia, pulses intact, pulses symmetrical, No edema, normal temperature, normal color, Full ROM Peripheral Pulses: within normal limits - Abdominal General gastrointestinal: Present: soft, non-tender, non-distended, normal bowel sounds. Absent: mass - Integumentary Integumentary: Present: clear, warm, dry. Absent: rash - Musculoskeletal Musculoskeletal: strength equal bilaterally - Psychiatric Psychiatric: appropriate mood/affect, intact judgment & insight, memory intact, cooperative - Neurologic Neurologic: CNII-XII intact, no focal deficits, moves all extremities - Constitutional Vitals: Vital Signs - 12hr 03/29/21 03/29/21 03/29/21 04:01 05:00 05:40 Temperature 98.0 F Pulse Rate 74 Pulse Rate [ 73 None] Respiratory 18 17 Rate Blood Pressure 126/80 130/82 O2 Sat by Pulse 96 100 97 Oximetry 03/29/21 03/29/21 03/29/21 05:51 06:00 06:11 Temperature Pulse Rate 74 73 73 Pulse Rate [ None] Respiratory 18 15 16 Rate Blood Pressure 114/75 114/75 O2 Sat by Pulse 96 96 96 Oximetry 03/29/21 03/29/21 03/29/21 06:21 06:31 07:00 Temperature Pulse Rate 74 79 74 Pulse Rate [ None] Respiratory 14 18 15 Rate Blood Pressure 114/75 114/75 124/73 O2 Sat by Pulse 96 96 95 Oximetry 03/29/21 03/29/21 03/29/21 07:34 08:00 09:00 Temperature Pulse Rate 76 76 Pulse Rate [ 98 H None] Respiratory 17 15 Rate Blood Pressure 112/72 111/68 O2 Sat by Pulse 96 95 Oximetry 03/29/21 03/29/21 03/29/21 10:00 11:00 11:54 Temperature Pulse Rate 76 87 Pulse Rate [ 98 H None] Respiratory 16 13 Rate Blood Pressure 125/73 106/74 O2 Sat by Pulse 95 97 Oximetry 03/29/21 03/29/21 03/29/21 12:00 13:00 14:00 Temperature Pulse Rate 72 84 75 Pulse Rate [ None] Respiratory 17 16 17 Rate Blood Pressure 113/71 115/69 118/67 O2 Sat by Pulse 98 96 97 Oximetry - Labs CBC & Chem 7: 03/28/21 18:52 03/29/21 23:12 Labs: Abnormal lab results 03/28/21 03/28/21 03/28/21 Range/Units 16:28 18:50 18:52 RBC 5.07 H (3.65-5.03) M/mm3 [place] % (Auto) 7.5 H (0.0-7.3) % Lymph # (Auto) 1.1 L (1.2-5.4) K/mm3 VBG pH (7.320-7.420) Sodium 130 L (137-145) mmol/L Potassium (3.6-5.0) mmol/L Chloride 87.7 L (98-107) mmol/L Creatinine 0.7 L (0.8-1.3) mg/dL Glucose 647 H* (75-100) mg/dL POC Glucose > 600 H (70-105) mg/dL Hemoglobin A1c (4-6) % Calcium 10.7 H (8.4-10.2) mg/dL Magnesium (1.7-2.3) mg/dL Alkaline Phosphatase 265 H (35-129) units/L Total Protein 8.3 H (6.3-8.2) g/dL Albumin 5.1 H (3.9-5) g/dL Salicylates (2.8-20.0) mg/dL Acetaminophen (10.0-30.0) ug/mL 03/28/21 03/28/21 03/28/21 Range/Units 18:52 18:52 18:52 RBC (3.65-5.03) M/mm3 [place] % (Auto) (0.0-7.3) % Lymph # (Auto) (1.2-5.4) K/mm3 VBG pH 7.299 L (7.320-7.420) Sodium (137-145) mmol/L Potassium (3.6-5.0) mmol/L Chloride (98-107) mmol/L Creatinine (0.8-1.3) mg/dL Glucose (75-100) mg/dL POC Glucose (70-105) mg/dL Hemoglobin A1c (4-6) % Calcium (8.4-10.2) mg/dL Magnesium (1.7-2.3) mg/dL Alkaline Phosphatase (35-129) units/L Total Protein (6.3-8.2) g/dL Albumin (3.9-5) g/dL Salicylates < 0.3 L (2.8-20.0) mg/dL Acetaminophen 5.0 L (10.0-30.0) ug/mL 03/28/21 03/28/21 03/28/21 Range/Units 21:01 22:33 23:00 RBC (3.65-5.03) M/mm3 [place] % (Auto) (0.0-7.3) % Lymph # (Auto) (1.2-5.4) K/mm3 VBG pH (7.320-7.420) Sodium 136 L 136 L (137-145) mmol/L Potassium 3.5 L D 3.5 L (3.6-5.0) mmol/L Chloride (98-107) mmol/L Creatinine 0.6 L 0.6 L (0.8-1.3) mg/dL Glucose 287 H 287 H (75-100) mg/dL POC Glucose 234 H (70-105) mg/dL Hemoglobin A1c (4-6) % Calcium (8.4-10.2) mg/dL Magnesium (1.7-2.3) mg/dL Alkaline Phosphatase (35-129) units/L Total Protein (6.3-8.2) g/dL Albumin (3.9-5) g/dL Salicylates (2.8-20.0) mg/dL Acetaminophen (10.0-30.0) ug/mL 03/29/21 03/29/21 03/29/21 Range/Units 04:12 05:22 05:22 RBC (3.65-5.03) M/mm3 [place] % (Auto) (0.0-7.3) % Lymph # (Auto) (1.2-5.4) K/mm3 VBG pH (7.320-7.420) Sodium (137-145) mmol/L Potassium (3.6-5.0) mmol/L Chloride (98-107) mmol/L Creatinine 0.5 L (0.8-1.3) mg/dL Glucose 261 H (75-100) mg/dL POC Glucose 245 H (70-105) mg/dL Hemoglobin A1c 13.3 H (4-6) % Calcium (8.4-10.2) mg/dL Magnesium 1.50 L (1.7-2.3) mg/dL Alkaline Phosphatase (35-129) units/L Total Protein (6.3-8.2) g/dL Albumin (3.9-5) g/dL Salicylates (2.8-20.0) mg/dL Acetaminophen (10.0-30.0) ug/mL 03/29/21 03/29/21 Range/Units 07:56 10:57 RBC (3.65-5.03) M/mm3 [place] % (Auto) (0.0-7.3) % Lymph # (Auto) (1.2-5.4) K/mm3 VBG pH (7.320-7.420) Sodium (137-145) mmol/L Potassium (3.6-5.0) mmol/L Chloride (98-107) mmol/L Creatinine (0.8-1.3) mg/dL Glucose (75-100) mg/dL POC Glucose 253 H 279 H (70-105) mg/dL Hemoglobin A1c (4-6) % Calcium (8.4-10.2) mg/dL Magnesium (1.7-2.3) mg/dL Alkaline Phosphatase (35-129) units/L Total Protein (6.3-8.2) g/dL Albumin (3.9-5) g/dL Salicylates (2.8-20.0) mg/dL Acetaminophen (10.0-30.0) ug/mL
--- NOTE | 2021-03-29 17:07 | Consultation ---
History of Present Illness Consult date: 03/29/21 History of present illness: 50-year-old white male with known history of hypertension, diabetes mellitus who presents to the emergency room for medical clearance because of suicidal ideations was found to have elevated blood glucose. Patient indicates that he has been out of his insulin for about a month. He denies any fever or chills, no chest pain or shortness of breath, no nausea or vomiting, no abdominal pain, no polydipsia, no increased thirst and no polyphagi a. Work-up in the emergency room reveals a blood glucose in the 600s and was found to be in mild DKA. Patient was subsequently started on IV fluid and given insulin. Blood glucose improved to the 200s with significant improvements in the anion gap. Patient admitted with hyperglycemia and suicidal ideations. Patient alert, awake. No complaint of chest pain, shortness of breath or cough. Patient is on room air. O2 saturation 95%. Denies any lung problems. No history of smoking, alcohol or drug abuse. 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 Not No children. No known drug allergies. Patient says he is homeless now. Past History Past Medical History: diabetes, hypertension, other (history of depression) Past Surgical History: cholecystectomy Social history: no significant social history Family history: no significant family history Medications and Allergies Allergies Allergy/AdvReac Type Severity Reaction Status Date / Time No Known Allergies Allergy Verified 03/28/21 21:13 Home Medications Medication Instructions Recorded Confirmed Last Taken Type Cymbalta BID 03/29/21 03/29/21 09:00 History Gabapentin TID 03/29/21 03/28/21 History Active Meds: Active Medications Dextrose (Dextrose 50% In Water (25gm) 50 Ml Syringe) 0 ml IV Q30MIN PRN; Protocol PRN Reason: Hypoglycemia Duloxetine HCl (Duloxetine 30 Mg Cap) 30 mg PO BID EMIGDIO Gabapentin (Gabapentin 300 Mg Cap) 300 mg PO TID [facility] Heparin Sodium (Porcine) (Heparin 5,000 Unit/1 Ml Vial) 5,000 unit SUB-Q Q8HR [facility] Last Admin: 03/29/21 13:34 Dose: 5,000 unit Documented by: Insulin Human Isoph/Insulin Regular (Insulin Nph/Regular 70/30 Inj) 15 unit SUB-Q BIDDIAB [facility] Last Admin: 03/29/21 11:05 Dose: 15 unit Documented by: Insulin Human Regular (Insulin Regular, Human 100 Units/1 Ml) 0 units SUB-Q ACHS [facility]; Protocol Last Admin: 03/29/21 11:06 Dose: 4 units Documented by: Morphine Sulfate (Morphine 2 Mg/1 Ml Inj) 2 mg IV Q4H PRN PRN Reason: Pain, Moderate (4-6) Sodium Chloride (Sodium Chloride 0.9% 10 Ml Flush Syringe) 10 ml IV BID [facility] Last Admin: 03/29/21 10:00 Dose: 10 ml Documented by: Sodium Chloride (Sodium Chloride 0.9% 10 Ml Flush Syringe) 10 ml IV PRN PRN PRN Reason: LINE FLUSH Review of Systems All systems: negative Physical Examination Vital signs: Vital Signs Pulse Ox 98 03/28/21 18:44 General appearance: no acute distress, alert Eyes: non-icteric ENT: oropharynx moist Neck: supple, no JVD Effort: normal Ascultation: Bilateral: clear Cardiovascular: regular rate and rhythm Gastrointestinal: normoactive bowel sounds, soft, non-tender Integumentary: normal Extremities: no cyanosis, no edema Musculoskeletal: no deformities Gait: other (Resting in bed at this time.) normal mental status, non-focal exam, pupils equal and round, CN II-XII normal depressed Results - Laboratory Findings CBC and BMP: 03/28/21 18:52 03/29/21 23:12 Abnormal lab findings: Abnormal Labs 03/28/21 03/28/21 03/28/21 16:28 18:50 18:52 RBC 5.07 H [place] % (Auto) 7.5 H Lymph # (Auto) 1.1 L VBG pH Sodium 130 L Potassium Chloride 87.7 L Creatinine 0.7 L Glucose 647 H* POC Glucose > 600 H Hemoglobin A1c Calcium 10.7 H Magnesium Alkaline Phosphatase 265 H Total Protein 8.3 H Albumin 5.1 H Salicylates Acetaminophen 03/28/21 03/28/21 03/28/21 18:52 18:52 18:52 RBC [place] % (Auto) Lymph # (Auto) VBG pH 7.299 L Sodium Potassium Chloride Creatinine Glucose POC Glucose Hemoglobin A1c Calcium Magnesium Alkaline Phosphatase Total Protein Albumin Salicylates < 0.3 L Acetaminophen 5.0 L 03/28/21 03/28/21 03/28/21 21:01 22:33 23:00 RBC [place] % (Auto) Lymph # (Auto) VBG pH Sodium 136 L 136 L Potassium 3.5 L D 3.5 L Chloride Creatinine 0.6 L 0.6 L Glucose 287 H 287 H POC Glucose 234 H Hemoglobin A1c Calcium Magnesium Alkaline Phosphatase Total Protein Albumin Salicylates Acetaminophen 03/29/21 03/29/21 03/29/21 04:12 05:22 05:22 RBC [place] % (Auto) Lymph # (Auto) VBG pH Sodium Potassium Chloride Creatinine 0.5 L Glucose 261 H POC Glucose 245 H Hemoglobin A1c 13.3 H Calcium Magnesium 1.50 L Alkaline Phosphatase Total Protein Albumin Salicylates Acetaminophen 03/29/21 03/29/21 07:56 10:57 RBC [place] % (Auto) Lymph # (Auto) VBG pH Sodium Potassium Chloride Creatinine Glucose POC Glucose 253 H 279 H Hemoglobin A1c Calcium Magnesium Alkaline Phosphatase Total Protein Albumin Salicylates Acetaminophen Assessment and Plan 50-year-old white male with known history of hypertension, diabetes mellitus who presents to the emergency room for medical clearance because of suicidal ideations was found to have elevated blood glucose. Patient indicates that he has been out of his insulin for about a month. He denies any fever or chills, no chest pain or shortness of breath, no nausea or vomiting, no abdominal pain, no polydipsia, no increased thirst and no polyphagia. Work-up in the emergency room reveals a blood glucose in the 600s and was found to be in mild DKA. Patient was subsequently started on IV fluid and given insulin. Blood glucose improved to the 200s with significant improvements in the anion gap. Patient admitted with hyperglycemia and suicidal ideations. Patient alert, awake. No complaint of chest pain, shortness of breath or cough. Patient is on room air. O2 saturation 95%. Denies any lung problems. No history of smoking, alcohol or drug abuse. 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 Not No children. No known drug allergies. Patient says he is homeless now. Patient was seen in [facility]. I spent critical care time of 35 minutes talking to the patient, obtaining history, review the chart, examine the patient , review labs, talking to the nursing staff. - Patient Problems (1) DKA (diabetic ketoacidoses) Current Visit: Yes Status: Acute Plan to address problem: Improved. Anion gap 9. (2) Hypertension Current Visit: Yes Status: Acute Plan to address problem: Management as per primary care. (3) Suicidal ideations Current Visit: Yes Status: Acute Plan to address problem: Consult Psychiatry.
[2021-03-29] MEDS: GABAPENTIN 300 MG CAP PO SCH (19:58)
[2021-03-29] MEDS ORDERED: NON-FORMULARY EACH (Gabapentin 300 MG) PO SCH (20:00)
[2021-03-29] MEDS ORDERED: NON-FORMULARY EACH (Cymbalta 30 MG) PO SCH (22:00)
[2021-03-29] MEDS: DULoxetine 30 MG CAP PO SCH (22:57)
[2021-03-29 23:43] LABS: Blood Urea Nitrogen 16 mg/dL (9-20); Hemolysis Index 11
[2021-03-29 23:45] LABS: BUN/Creatinine Ratio 32
[2021-03-30] MEDS: HEPARIN 5,000 UNIT/1 ML VIAL SUB-Q SCH ×3 (06:01→21:37)
[2021-03-30] MEDS: INSULIN REGULAR, HUMAN 100 UNITS/1 ML SUB-Q SCH ×4 (08:44→21:36)
[2021-03-30] MEDS: GABAPENTIN 300 MG CAP PO SCH ×3 (08:45→21:37)
[2021-03-30] MEDS: INSULIN NPH/REGULAR 70/30 INJ SUB-Q SCH ×3 (09:10→17:35)
[2021-03-30] MEDS: DULoxetine 30 MG CAP PO SCH ×2 (09:31→21:37)
[2021-03-30] MEDS ORDERED: SODIUM CHLORIDE 0.9% 1000 ML 1,000 ML IV SCH (11:30)
[2021-03-30] MEDS ORDERED: INSULIN NPH/REGULAR 70/30 INJ SUB-Q SCH (12:00)
--- NOTE | 2021-03-30 13:39 | Progress Note ---
Assessment and Plan 50-year-old white male with known history of hypertension, diabetes mellitus who presents to the emergency room for suicidal ideations was found to have elevated blood glucose and admitted for DKA and suicidal ideation. -- DKA (diabetic ketoacidoses) Patient was started on IV fluid and also given insulin. Blood glucose has improved significantly with improvement in anion gap. We will monitor Accu-Cheks closely. We will also check hemoglobin A1c. Patient will also receive diabetic education. Continue to adjust insulin dose for better glycemic control -- Suicidal ideations Patient placed on suicide precautions. Patient currently on 1013. Consult will be placed to mental health for further evaluation and recommendation. -- Hypertension: Blood pressure stable resumed routine home medications once reconciled. -- DVT prophylaxis Patient placed on subcutaneous heparin. --Full code status Patient is full code. Daily clinical course: 03/29/21: BG improved. Continue to adjust insulin dose for better glycemic control. Patient with health and safety technician, psych consulted -pending evaluation. We will transfer to telemetry. Patient states that he is ready to start a sexual offender, homeless and jobless. recruitment advertising manager consulted for assistance. 03/30/21: Patient blood glucose at 500s today. Start IV fluid, increase insulin doses, monitor carefully. Psych evaluation pending. recruitment advertising manager working on placement issue Subjective Date of service: 03/30/21 Interval history: Patient seen and examined. Medical records and medication list reviewed. No acute event overnight noted by the RN. Patient denies any chest pain or difficulty breathing. Blood glucose noted to be elevated, psych eval pending Discussed plan of care at bedside with patient. Objective - Exam Narrative Exam: General appearance: Present: no acute distress, well-nourished - EENT Eyes: Present: PERRL, EOM intact. Absent: scleral icterus ENT: hearing intact, clear oral mucosa, dentition normal - Neck Neck: Present: supple, normal ROM - Respiratory Respiratory effort: normal Respiratory: bilateral: CTA - Cardiovascular Rhythm: regular Heart Sounds: Present: S1 & S2. Absent: gallop, systolic murmur, diastolic murmur, rub, click - Extremities Extremities: no ischemia, pulses intact, pulses symmetrical, No edema, normal temperature, normal color, Full ROM Peripheral Pulses: within normal limits - Abdominal General gastrointestinal: Present: soft, non-tender, non-distended, normal bowel sounds. Absent: mass - Integumentary Integumentary: Present: clear, warm, dry. Absent: rash - Musculoskeletal Musculoskeletal: strength equal bilaterally - Psychiatric Psychiatric: appropriate mood/affect, intact judgment & insight, memory intact, cooperative - Neurologic Neurologic: CNII-XII intact, no focal deficits, moves all extremities - Constitutional Vitals: Vital Signs - 12hr 03/30/21 03/30/21 06:00 12:58 Temperature 97.4 F L 98.3 F Pulse Rate 70 85 Respiratory 18 18 Rate Blood Pressure 143/89 Blood Pressure 116/74 [Right] O2 Sat by Pulse 96 97 Oximetry - Labs CBC & Chem 7: 03/28/21 18:52 03/30/21 15:05 Labs: Abnormal lab results 03/29/21 03/29/21 03/29/21 Range/Units 16:16 19:49 23:12 Sodium 132 L D (137-145) mmol/L Chloride 96.6 L (98-107) mmol/L Creatinine 0.5 L (0.8-1.3) mg/dL Glucose 183 H (75-100) mg/dL POC Glucose 290 H 205 H (70-105) mg/dL 03/30/21 03/30/21 03/30/21 Range/Units 07:39 10:51 11:55 Sodium (137-145) mmol/L Chloride (98-107) mmol/L Creatinine (0.8-1.3) mg/dL Glucose (75-100) mg/dL POC Glucose 387 H 536 H 448 H (70-105) mg/dL
[2021-03-30 16:04] LABS: Blood Urea Nitrogen 12 mg/dL (9-20); Calcium 8.9 mg/dL (8.4-10.2); Hemolysis Index 12
[2021-03-30 16:09] LABS: BUN/Creatinine Ratio 17
[2021-03-31] MEDS: HEPARIN 5,000 UNIT/1 ML VIAL SUB-Q SCH ×3 (05:57→22:05)
[2021-03-31] MEDS: INSULIN REGULAR, HUMAN 100 UNITS/1 ML SUB-Q SCH ×4 (08:04→22:10)
[2021-03-31] MEDS ORDERED: INSULIN NPH/REGULAR 70/30 INJ SUB-Q SCH ×2 (08:41→09:00)
[2021-03-31] MEDS: GABAPENTIN 300 MG CAP PO SCH ×3 (09:32→21:11)
[2021-03-31] MEDS: DULoxetine 30 MG CAP PO SCH ×2 (09:32→22:05)
[2021-03-31] MEDS: MORPHINE 2 MG/1 ML INJ IV PRN (09:42)
[2021-03-31] MEDS: INSULIN NPH/REGULAR 70/30 INJ SUB-Q SCH ×2 (12:21→17:35)
--- NOTE | 2021-03-31 13:01 | Event Note ---
Date: 03/31/21 clinically stable DKA resoved - will see prn
--- NOTE | 2021-03-31 14:33 | Progress Note ---
Assessment and Plan 50-year-old white male with known history of hypertension, diabetes mellitus who presents to the emergency room for suicidal ideations was found to have elevated blood glucose and admitted for DKA and suicidal ideation. -- DKA (diabetic ketoacidoses) Patient was started on IV fluid and also given insulin. Blood glucose has improved significantly with improvement in anion gap. We will monitor Accu-Cheks closely. We will also check hemoglobin A1c. Patient will also receive diabetic education. Continue to adjust insulin dose for better glycemic control -- Suicidal ideations Patient placed on suicide precautions. Patient currently on 1013. Consult will be placed to mental health for further evaluation and recommendation. -- Hypertension: Blood pressure stable resumed routine home medications once reconciled. -- DVT prophylaxis Patient placed on subcutaneous heparin. --Full code status Patient is full code. Daily clinical course: 03/29/21: BG improved. Continue to adjust insulin dose for better glycemic control. Patient with patient safety coordinator, psych consulted -pending evaluation. We will transfer to telemetry. Patient states that he is ready to start a sexual offender, homeless and jobless. patient relations manager consulted for assistance. 03/30/21: Patient blood glucose at 500s today. Start IV fluid, increase insulin doses, monitor carefully. Psych evaluation pending. patient relations manager working on placement issue 03/31/21; patient has not been seen by psych yet. Patient has been clinically stable. Continue to adjust insulin dose. Patient is medically stable for discharge. Wait for psychiatric clearance for discharge planning. Subjective Date of service: 03/31/21 Interval history: Patient seen and examined. Medical records and medication list reviewed. No acute event overnight noted by the RN. Patient denies any chest pain or difficulty breathing. Blood glucose remains elevated, psych eval pending Discussed plan of care at bedside with patient. Objective - Exam Narrative Exam: General appearance: Present: no acute distress, well-nourished - EENT Eyes: Present: PERRL, EOM intact. Absent: scleral icterus ENT: hearing intact, clear oral mucosa, dentition normal - Neck Neck: Present: supple, normal ROM - Respiratory Respiratory effort: normal Respiratory: bilateral: CTA - Cardiovascular Rhythm: regular Heart Sounds: Present: S1 & S2. Absent: gallop, systolic murmur, diastolic mu rmur, rub, click - Extremities Extremities: no ischemia, pulses intact, pulses symmetrical, No edema, normal temperature, normal color, Full ROM Peripheral Pulses: within normal limits - Abdominal General gastrointestinal: Present: soft, non-tender, non-distended, normal bowel sounds. Absent: mass - Integumentary Integumentary: Present: clear, warm, dry. Absent: rash - Musculoskeletal Musculoskeletal: strength equal bilaterally - Psychiatric Psychiatric: appropriate mood/affect, intact judgment & insight, memory intact, cooperative - Neurologic Neurologic: CNII-XII intact, no focal deficits, moves all extremities - Constitutional Vitals: Vital Signs - 12hr 03/31/21 03/31/21 03:59 10:00 Temperature 97.8 F Pulse Rate 68 68 Respiratory 17 Rate Blood Pressure 120/80 O2 Sat by Pulse 98 Oximetry - Labs CBC & Chem 7: 03/28/21 18:52 03/30/21 15:05 Labs: Abnormal lab results 03/30/21 03/30/21 03/31/21 Range/Units 15:05 19:59 07:43 Creatinine 0.7 L (0.8-1.3) mg/dL Glucose 114 H (75-100) mg/dL POC Glucose 335 H 384 H (70-105) mg/dL 03/31/21 Range/Units 11:27 Creatinine (0.8-1.3) mg/dL Glucose (75-100) mg/dL POC Glucose 398 H (70-105) mg/dL
--- NOTE | 2021-03-31 15:56 | Consultation ---
History of Present Illness - Reason for Consult Consult date: 03/31/21 Reason for consult: SI - Chief Complaint Chief complaint: Per ED Note: 50-year-old white male with known history of hypertension, diabetes mellitus who presents to the emergency room for medical clearance because of suicidal ideations was found to have elevated blood glucose. Patient indicates that he has been out of his insulin for about a month. He denies any fever or chills, no chest pain or shortness of breath, no nausea or vomiting, no abdominal pain, no polydipsia, no increased thirst and no polyphagia. Work-up in the emergency room reveals a blood glucose in the 600s and was found to be in mild DKA. Patient was subsequently started on IV fluid and given insulin. Blood glucose improved to the 200s with significant improvements in the anion gap. Patient therefore been admitted with hyperglycemia and suicidal ideations. Braydon Hill is a 50 year old male who presented to the ED for SI. During my interview with patient he reports a history of depression and sucidal attempt x1. Patient reports he was recently released from [facility] last month for child molestation charge. Patient states he was dropped of at a [employer] where he purchased a knife and cut his wrist. Patient states he was sent to [place] where he stayed for 7 days and was admitted here for hyperglycemia. Patient continues to endorse suicidal ideation, stating " I will kill myself before I go back to [facility]." Patient is homeless. PAST PSYCHIATRIC HISTORY: Diagnoses: Depression Suicide attempts or Self-harm behavior: Yes X1 Prior psychiatric hospitalizations: yes Substance Abuse history: Alcohol Previous psychiatric medications tried: " tried everything" Outpatient treatment: n/a PAST MEDICAL HISTORY: Diabetes M. Family Psychiatric History: None reported or documented SOCIAL HISTORY Marital Status: no Living Arrangements: homeless Employment Status: unemployed Access to guns/weapons: n/a Education: college History of Abuse: n/a Legal History: Probation REVIEW OF SYSTEMS Constitutional: Negative for weight loss ENT: Negative for stridor Respiratory: Negative for cough or hemoptysis All other systems reviewed and are negative MENTAL STATUS EXAMINATION General Appearance and Behavior: Age appropriate, good hygiene, wearing appropriate clothes, uncooperative polite with questioning. Cooperation: cooperative Psychomotor Behavior: Psychomotor agitation Mood: "depressed" Affect and affective range: congruent with stated mood Thought Process: circumstantial Thought Content: Suicidal Speech: Normal volume, Regular rate and rhythm Intellectual Functioning: Poor Suicidal Ideation: Yes Homicidal Ideation: Denied Impulse Control: impaired Insight and Judgment: limited Memory: Normal Attention:Distractible Orientation: Alert and oriented Diagnoses: Major depressive Disorder Current Visit: Yes Status: Acute F33.1 RECOMMENDATIONS: 1013 Continue- Duloxetin 30mg po BID Continue- Gabapentin 300mg po TID Risks, benefits and alternatives of medications discussed with the patient, questions answered and consent obtained from patient. PSYCHOTHERAPY: Supportive psychotherapy provided MEDICAL: Per primary team DELIRIUM PRECAUTIONS: Please re-orient patient frequently, keep lights on during the day, and minimize benzodiazepines and opiates as these medications could worsen patient's confusion. UPHOLSTERY HANDLER: Per medical team DISPOSITION:Recommend acute inpatient psychiatric hospitalization. FOLLOW-UP:Will follow. Please contact with any questions and/or concerns. Medications and Allergies Allergies Allergy/AdvReac Type Severity Reaction Status Date / Time No Known Allergies Allergy Verified 03/28/21 21:13 Home Medications Medication Instructions Recorded Confirmed Last Taken Type Cymbalta 30 mg PO BID 03/29/21 04/01/21 04/01/21 History Gabapentin 300 mg PO TID 03/29/21 04/01/21 04/01/21 History Insulin NPH/Regular [NovoLIN 70/30] 45 unit SUB-Q BIDDIAB 30 Days 04/02/21 Unknown Rx Insulin Regular, Human [HumuLIN R] 0 units SUB-Q ACHS 30 Days 04/02/21 Unknown Rx metFORMIN [Glucophage] 850 mg PO BIDDIAB #60 tablet 04/02/21 Unknown Rx Active Meds: Active Medications Dextrose (Dextrose 50% In Water (25gm) 50 Ml Syringe) 0 ml IV Q30MIN PRN; Protocol PRN Reason: Hypoglycemia Duloxetine HCl (Duloxetine 30 Mg Cap) 30 mg PO BID [facility] Last Admin: 03/31/21 09:32 Dose: 30 mg Documented by: Gabapentin (Gabapentin 300 Mg Cap) 300 mg PO TID EMIGDIO Last Admin: 03/31/21 13:53 Dose: 300 mg Documented by: Heparin Sodium (Porcine) (Heparin 5,000 Unit/1 Ml Vial) 5,000 unit SUB-Q Q8HR EMIGDIO Last Admin: 03/31/21 13:53 Dose: 5,000 unit Documented by: Sodium Chloride (Nacl 0.9% 1000 Ml) 1,000 mls @ 100 mls/hr IV DIRECT EMIGDIO Insulin Human Isoph/Insulin Regular (Insulin Nph/Regular 70/30 Inj) 30 unit SUB-Q BIDDIAB [facility] Insulin Human Regular (Insulin Regular, Human 100 Units/1 Ml) 0 units SUB-Q ACHS [facility]; Protocol Last Admin: 03/31/21 13:52 Dose: 8 units Documented by: Morphine Sulfate (Morphine 2 Mg/1 Ml Inj) 2 mg IV Q4H PRN PRN Reason: Pain, Moderate (4-6) Last Admin: 03/31/21 09:42 Dose: 2 mg Documented by: Sodium Chloride (Sodium Chloride 0.9% 10 Ml Flush Syringe) 10 ml IV BID EMIGDIO Last Admin: 03/31/21 09:41 Dose: 10 ml Documented by: Sodium Chloride (Sodium Chloride 0.9% 10 Ml Flush Syringe) 10 ml IV PRN PRN PRN Reason: LINE FLUSH Mental Status Exam - Vital signs Last Vital Signs Temp 97.8 F 03/31/21 03:59 Pulse 68 03/31/21 10:00 Resp 17 03/31/21 03:59 BP 120/80 03/31/21 03:59 Pulse Ox 98 03/31/21 03:59 Results Result Diagrams: 03/28/21 18:52 03/30/21 15:05 Abnormal lab results 03/30/21 03/30/21 03/31/21 Range/Units 15:05 19:59 07:43 Creatinine 0.7 L (0.8-1.3) mg/dL Glucose 114 H (75-100) mg/dL POC Glucose 335 H 384 H (70-105) mg/dL 03/31/21 Range/Units 11:27 Creatinine (0.8-1.3) mg/dL Glucose (75-100) mg/dL POC Glucose 398 H (70-105) mg/dL All other labs normal.
[2021-04-01] MEDS: MORPHINE 2 MG/1 ML INJ IV PRN ×3 (04:04→20:11)
[2021-04-01] MEDS: HEPARIN 5,000 UNIT/1 ML VIAL SUB-Q SCH ×3 (05:48→22:29)
[2021-04-01] MEDS: DULoxetine 30 MG CAP PO SCH ×2 (10:42→22:28)
[2021-04-01] MEDS: GABAPENTIN 300 MG CAP PO SCH ×3 (10:43→22:29)
[2021-04-01] MEDS: INSULIN NPH/REGULAR 70/30 INJ SUB-Q SCH ×2 (10:43→17:19)
[2021-04-01] MEDS: INSULIN REGULAR, HUMAN 100 UNITS/1 ML SUB-Q SCH ×4 (10:44→23:00)
--- NOTE | 2021-04-01 15:46 | Progress Note ---
Assessment and Plan 50-year-old white male with known history of hypertension, diabetes mellitus who presents to the emergency room for suicidal ideations was found to have elevated blood glucose and admitted for DKA and suicidal ideation. -- DKA (diabetic ketoacidoses) Patient was started on IV fluid and also given insulin. Blood glucose has improved significantly with improvement in anion gap. We will monitor Accu-Cheks closely. We will also check hemoglobin A1c. Patient will also receive diabetic education. Continue to adjust insulin dose for better glycemic control -- Suicidal ideations Patient placed on suicide precautions. Patient currently on 1013. Consult will be placed to mental health for further evaluation and recommendation. -- Hypertension: Blood pressure stable resumed routine home medications once reconciled. -- DVT prophylaxis Patient placed on subcutaneous heparin. --Full code status Patient is full code. Daily clinical course: 03/29/21: BG improved. Continue to adjust insulin dose for better glycemic control. Patient with food safety auditor, psych consulted -pending evaluation. We will transfer to telemetry. Patient states that he is ready to start a sexual offender, homeless and jobless. manager country consulted for assistance. 03/30/21: Patient blood glucose at 500s today. Start IV fluid, increase insulin doses, monitor carefully. Psych evaluation pending. manager country working on placement issue 03/31/21; patient has not been seen by psych yet. Patient has been clinically stable. Continue to adjust insulin dose. Patient is medically stable for discharge. Wait for psychiatric clearance for discharge planning. 04/01/21; patient was evaluated by psychiatry and did not recommend any inpatient psych admission. Discussed plan of care with patient thoroughly and he verbalized understanding. Patient blood glucose remains above 350 despite of increasing swelling 70/30 doses. We will continue to adjust insulin dose to keep serum blood glucose below 300. Will DC the patient home when blood glucose goal achieved. Subjective Date of service: 04/01/21 Interval history: Patient seen and examined. Medical records and medication list reviewed. No acute event overnight noted by the RN. Patient denies any chest pain or difficulty breathing. Blood glucose noted to be elevated, Discussed plan of care at bedside with patient. Objective - Exam Narrative Exam: General appearance: Present: no acute distress, well-nourished - EENT Eyes: Present: PERRL, EOM intact. Absent: scleral icterus ENT: hearing intact, clear oral mucosa, dentition normal - Neck Neck: Present: supple, normal ROM - Respiratory Respiratory effort: normal Respiratory: bilateral: CTA - Cardiovascular Rhythm: regular Heart Sounds: Present: S1 & S2. Absent: gallop, systolic murmur, diastolic murmur, rub, click - Extremities Extremities: no ischemia, pulses intact, pulses symmetrical, No edema, normal temperature, normal color, Full ROM Peripheral Pulses: within normal limits - Abdominal General gastrointestinal: Present: soft, non-tender, non-distended, normal bowel sounds. Absent: mass - Integumentary Integumentary: Present: clear, warm, dry. Absent: rash - Musculoskeletal Musculoskeletal: strength equal bilaterally - Psychiatric Psychiatric: appropriate mood/affect, intact judgment & insight, memory intact, cooperative - Neurologic Neurologic: CNII-XII intact, no focal deficits, moves all extremities - Constitutional Vitals: Vital Signs - 12hr 04/01/21 04/01/21 04/01/21 04:04 04:19 04:34 Temperature 98.3 F Pulse Rate 76 Respiratory 20 18 18 Rate Blood Pressure 131/83 O2 Sat by Pulse 95 Oximetry 04/01/21 11:26 Temperature 97.6 F Pulse Rate 71 Respiratory 18 Rate Blood Pressure 125/88 O2 Sat by Pulse 96 Oximetry - Labs CBC & Chem 7: 03/28/21 18:52 03/30/21 15:05 Labs: Abnormal lab results 03/31/21 03/31/21 04/01/21 Range/Units 17:41 21:55 08:13 POC Glucose 249 H 212 H 342 H (70-105) mg/dL 04/01/21 Range/Units 11:21 POC Glucose 380 H (70-105) mg/dL
[2021-04-01] MEDS ORDERED: INSULIN NPH/REGULAR 70/30 INJ SUB-Q SCH (17:00)
[2021-04-01] MEDS: metFORMIN 850 MG TAB PO SCH (20:25)
[2021-04-02] MEDS: HEPARIN 5,000 UNIT/1 ML VIAL SUB-Q SCH ×3 (05:44→22:21)
[2021-04-02] MEDS: GABAPENTIN 300 MG CAP PO SCH ×3 (09:31→22:20)
[2021-04-02] MEDS: INSULIN NPH/REGULAR 70/30 INJ SUB-Q SCH ×2 (09:32→18:03)
[2021-04-02] MEDS: DULoxetine 30 MG CAP PO SCH ×2 (09:32→22:20)
[2021-04-02] MEDS: metFORMIN 850 MG TAB PO SCH ×2 (09:32→18:33)
[2021-04-02] MEDS: INSULIN REGULAR, HUMAN 100 UNITS/1 ML SUB-Q SCH ×4 (09:33→22:28)
[2021-04-02] MEDS: MORPHINE 2 MG/1 ML INJ IV PRN ×2 (09:39→22:21)
[2021-04-02] MEDS ORDERED: MAGNESIUM SULFATE 2 GM/50 ML BAG IV ONE (12:05)
--- NOTE | 2021-04-02 12:27 | Discharge Summary ---
Providers - Providers Date of Admission: 03/29/21 11:53 Date of discharge: 04/03/21 Attending physician: IHSAN LIZARRAGA 03/28/21 20:49 Consult to Dietitian/Nutrition [CONS] Routine Physician Instructions: Reason For Exam: DKA Reason for Consult: Nutrition Recommendations Reason for Consult: Diet education 03/28/21 22:29 Consult to Dietitian/Nutrition [CONS] Routine Physician Instructions: Reason For Exam: DKA Reason for Consult: Nutrition Recommendations Reason for Consult: Diet education Consult to Physician [CONS] Routine Comment: Consulting Provider: CHRIS GUADARRAMA Physician Instructions: Reason For Exam: DKA- On insulin drip 03/28/21 22:44 Consult to Mental Health [CONS] Routine Reason For Exam: Suicidal ideations Primary care physician: OPERATION MANAGER Hospitalization Condition: Fair Hospital course: 50-year-old white male with known history of hypertension, diabetes mellitus who presents to the emergency room for suicidal ideation was found to have elevated blood glucose and admitted for DKA and suicidal ideation. Daily clinical course: 03/29/21: BG improved. Continue to adjust insulin dose for better glycemic control. Patient with safety counselor, psych consulted -pending evaluation. We will transfer to telemetry. Patient states that he is registered as a sexual offender, homeless and jobless. community engagement manager consulted for assistance. 03/30/21: Patient blood glucose at 500s today. Start IV fluid, increase insulin doses, monitor carefully. Psych evaluation pending. community engagement manager working on placement issue 03/31/21; patient has not been seen by psych yet. Patient has been clinically stable. Continue to adjust insulin dose. Patient is medically stable for discharge. Wait for psychiatric clearance for discharge planning. 04/01/21; patient was evaluated by psychiatry and did not recommend any inpatient psych admission. Discussed plan of care with patient thoroughly and he verbalized understanding. Patient blood glucose remains above 350 despite of increasing swelling 70/30 doses. We will continue to adjust insulin dose to keep serum blood glucose below 300. Will DC the patient home when blood glucose goal achieved. 04/02/21: further increased insulin dose for BG maintenance. Patient clinically stable. psych did not recommend any inpatient psych admission. replace Mg. Psych extended patient's 1013. Continue to monitor patient blood glucose and adjust insulin dose as needed patient is medically stable further diabetic care could be done as outpatient.. Waiting on psych clearance for discharge. 04/03/21: Patient was caught keeping small sugar packets with him and eating sugars to make his BG high. Patient was instructed and advised not to eat sugar because that will make his blood glucose to go high. Patient verbalized understanding. Now waiting on psych clearance for discharge. Patient will be discharged with outpt f/u. He was given all community information for assistance. 04/04/21: BG improved. 1013 was rescended by psych. Patient to d/c today, all resources has given. The patient understands that if suicidal/homicidal ideas, or any endangering thoughts arise, the patient should immediately seek for emergent assistance including but not limited to crisis hot line and emergency hotline and emergency room. Patient verbalized understanding what was discussed by me and psych. Disposition: DC-01 TO HOME OR SELFCARE Final Discharge Diagnosis (Prints w/discharge instructions): DKA with uncontrolled DM. Suicidal ideation. MDD. hypomagnesemia. HTN Time spent for discharge: 34 minutes Core Measure Documentation - Palliative Care Palliative Care/ Comfort Measures: Not Applicable - Core Measures Any of the following diagnoses?: none Exam - Physical Exam Narrative exam: General appearance: Present: no acute distress, well-nourished - EENT Eyes: Present: PERRL, EOM intact. Absent: scleral icterus ENT: hearing intact, clear oral mucosa, dentition normal - Neck Neck: Present: supple, normal ROM - Respiratory Respiratory effort: normal Respiratory: bilateral: CTA - Cardiovascular Rhythm: regular Heart Sounds: Present: S1 & S2. Absent: gallop, systolic murmur, diastolic murmur, rub, click - Extremities Extremities: no ischemia, pulses intact, pulses symmetrical, No edema, normal temperature, normal color, Full ROM Peripheral Pulses: within normal limits - Abdominal General gastrointestinal: Present: soft, non-tender, non-distended, normal bowel sounds. Absent: mass - Integumentary Integumentary: Present: clear, warm, dry. Absent: rash - Musculoskeletal Musculoskeletal: strength equal bilaterally - Psychiatric Psychiatric: appropriate mood/affect, intact judgment & insight, memory intact, cooperative - Neurologic Neurologic: CNII-XII intact, no focal deficits, moves all extremities - Constitutional Vitals: Temp Pulse Resp BP Pulse Ox 97.5 F L 72 16 116/75 96 04/02/21 04:50 04/02/21 04:50 04/02/21 04:50 04/02/21 04:50 04/02/21 04:50 Plan Activity: advance as tolerated Weight Bearing Status: Weight Bear as Tolerated Diet: diabetic Special Instructions: record blood sugar diary Additional Instructions: Please take insulin 70/30 45 units before breakfast and before dinner. Also use sliding scale insulin as instructed as needed. Please be compliant with your meds. f/u at [facility] for outpt f/u Follow up with: PRIMARY MD JENN [Primary Care Provider] - 3-5 Days SARAH BOWEN MD [Staff Physician] - 7 Days Prescriptions: metFORMIN [Glucophage] 850 mg PO BIDDIAB #60 tablet Insulin Regular, Human [HumuLIN R] 0 units SUB-Q ACHS 30 Days Magnesium 250 mg PO BID #7 tablet Insulin NPH/Regular [NovoLIN 70/30] 45 unit SUB-Q BIDDIAB 30 Days Other Discharge Orders: Glucometer (Amb) Location: None Selected Glucometer supplies[Amb] Location: None Selected
[2021-04-03] MEDS: HEPARIN 5,000 UNIT/1 ML VIAL SUB-Q SCH ×3 (05:46→23:34)
[2021-04-03] MEDS: INSULIN REGULAR, HUMAN 100 UNITS/1 ML SUB-Q SCH ×4 (10:40→23:38)
[2021-04-03] MEDS: metFORMIN 850 MG TAB PO SCH ×2 (10:41→18:21)
[2021-04-03] MEDS: INSULIN NPH/REGULAR 70/30 INJ SUB-Q SCH ×2 (10:41→18:19)
[2021-04-03] MEDS: DULoxetine 30 MG CAP PO SCH ×2 (10:41→23:34)
[2021-04-03] MEDS: GABAPENTIN 300 MG CAP PO SCH ×3 (10:42→23:33)
[2021-04-03] MEDS: MORPHINE 2 MG/1 ML INJ IV PRN ×2 (10:42→20:52)
--- NOTE | 2021-04-03 12:59 | Event Note ---
Date: 04/03/21 Patient was caught keeping small sugar packets with him and eating sugars to make his BG high. Patient's claim of SI seems to be malingering to be in the hospital as he is homeless Wait for psych to reascend 1013, patient medically clear for discharge.
--- NOTE | 2021-04-03 15:37 | Progress Note ---
Assessment and Plan 50-year-old white male with known history of hypertension, diabetes mellitus who presents to the emergency room for suicidal ideations was found to have elevated blood glucose and admitted for DKA and suicidal ideation. -- DKA (diabetic ketoacidoses) Patient was started on IV fluid and also given insulin. Blood glucose has improved significantly with improvement in anion gap. We will monitor Accu-Cheks closely. We will also check hemoglobin A1c. Patient will also receive diabetic education. Continue to adjust insulin dose for better glycemic control -- Suicidal ideations, highly suspicious for malingering as patient is currently homeless without any job or family support Patient placed on suicide precautions. Patient currently on 1013. Consult placed to mental health for further evaluation and recommendation. -- Hypertension: Blood pressure stable resumed routine home medications once reconciled. -- DVT prophylaxis Patient placed on subcutaneous heparin. --Full code status Patient is full code. Daily clinical course: 03/29/21: BG improved. Continue to adjust insulin dose for better glycemic control. Patient with product safety compliance leader, psych consulted -pending evaluation. We will transfer to telemetry. Patient states that he is ready to start a sexual offender, homeless and jobless. framing manager consulted for assistance. 03/30/21: Patient blood glucose at 500s today. Start IV fluid, increase insulin doses, monitor carefully. Psych evaluation pending. framing manager working on placement issue 03/31/21; patient has not been seen by psych yet. Patient has been clinically stable. Continue to adjust insulin dose. Patient is medically stable for discharge. Wait for psychiatric clearance for discharge planning. 04/01/21; patient was evaluated by psychiatry and did not recommend any inpatient psych admission. Discussed plan of care with patient thoroughly and he verbalized understanding. Patient blood glucose remains above 350 despite of increasing swelling 70/30 doses. We will continue to adjust insulin dose to keep serum blood glucose below 300. Will DC the patient home when blood glucose goal achieved. 04/02/21: Psych extended patient's 101. Continue to monitor patient blood glucose and adjust insulin dose as needed patient is medically stable further diabetic care could be done as outpatient.. Waiting on psych clearance for discharge. Subjective Date of service: 04/02/21 Interval history: Patient seen and examined. Medical records and medication list reviewed. No acute event overnight noted by the RN. Patient denies any chest pain or difficulty breathing. psych continued 1013 Discussed plan of care at bedside with patient. Objective - Exam Narrative Exam: General appearance: Present: no acute distress, well-nourished - EENT Eyes: Present: PERRL, EOM intact. Absent: scleral icterus ENT: hearing intact, clear oral mucosa, dentition normal - Neck Neck: Present: supple, normal ROM - Respiratory Respiratory effort: normal Respiratory: bilateral: CTA - Cardiovascular Rhythm: regular Heart Sounds: Present: S1 & S2. Absent: gallop, systolic murmur, diastolic murmur, rub, click - Extremities Extremities: no ischemia, pulses intact, pulses symmetrical, No edema, normal temperature, normal color, Full ROM Peripheral Pulses: within normal limits - Abdominal General gastrointestinal: Present: soft, non-tender, non-distended, normal bowel sounds. Absent: mass - Integumentary Integumentary: Present: clear, warm, dry. Absent: rash - Musculoskeletal Musculoskeletal: strength equal bilaterally - Psychiatric Psychiatric: appropriate mood/affect, intact judgment & insight, memory intact, cooperative - Neurologic Neurologic: CNII-XII intact, no focal deficits, moves all extremities - Constitutional Vitals: Vital Signs - 12hr 04/03/21 04/03/21 04/03/21 04:47 04:51 11:23 Temperature 97.8 F 97.4 F L Pulse Rate 71 74 Respiratory 18 18 Rate Blood Pressure 122/77 Blood Pressure 123/84 [Right] O2 Sat by Pulse 97 97 Oximetry - Labs CBC & Chem 7: 03/28/21 18:52 03/30/21 15:05 Labs: Abnormal lab results 04/02/21 04/02/21 04/03/21 Range/Units 16:40 21:40 07:48 POC Glucose 113 H 155 H 372 H (70-105) mg/dL 04/03/21 Range/Units 11:57 POC Glucose 410 H (70-105) mg/dL
--- NOTE | 2021-04-03 16:21 | Progress Note ---
Subjective - Reason for Consult Consult date: 04/02/21 Reason for consult: Suicidal Ideation - Chief Complaint Chief complaint: Late Entry: Patient was seen resting in bed with a sitter in the room. Patient reports doing well. states sleep and appetite as fine. Patient continues to endorse passive suicidal ideation stating if " I find myself in no place to live I will harm my self." He denies any hallucinations. REVIEW OF SYSTEMS Constitutional: Negative for weight loss ENT: Negative for stridor Respiratory: Negative for cough or hemoptysis All other systems reviewed and are negative MENTAL STATUS EXAMINATION General Appearance and Behavior: Age appropriate, good hygiene, wearing appropriate clothes, uncooperative polite with questioning. Cooperation: cooperative Psychomotor Behavior: Psychomotor agitation Mood: "depressed" Affect and affective range: congruent with stated mood Thought Process: circumstantial Thought Content: Suicidal Speech: Normal volume, Regular rate and rhythm Intellectual Functioning: Poor Suicidal Ideation: Yes Homicidal Ideation: Denied Impulse Control: impaired Insight and Judgment: limited Memory: Normal Attention:Distractible Orientation: Alert and oriented Diagnoses: Major depressive Disorder Current Visit: Yes Status: Acute F33.1 RECOMMENDATIONS: Continue 1013 Continue- Duloxetin 30mg po BID Continue- Gabapentin 300mg po TID Risks, benefits and alternatives of medications discussed with the patient, questions answered and consent obtained from patient. PSYCHOTHERAPY: Supportive psychotherapy provided MEDICAL: Per primary team DELIRIUM PRECAUTIONS: Please re-orient patient frequently, keep lights on during the day, and minimize benzodiazepines and opiates as these medications could worsen patient's confusion. SHANK CUTTER: Per medical team DISPOSITION:Recommend acute inpatient psychiatric hospitalization. FOLLOW-UP:Will follow. Please contact with any questions and/or concerns. Mental Status Exam - Vital signs Last Vital Signs Temp 97.4 F L 04/03/21 11:23 Pulse 74 04/03/21 11:23 Resp 18 04/03/21 11:23 BP 122/77 04/03/21 11:23 Pulse Ox 97 04/03/21 11:23
[2021-04-04] MEDS: HEPARIN 5,000 UNIT/1 ML VIAL SUB-Q SCH ×2 (06:11→13:00)
[2021-04-04 06:25] LABS: BUN/Creatinine Ratio 22; Blood Urea Nitrogen 13 mg/dL (9-20); Hemolysis Index 18
[2021-04-04] MEDS: metFORMIN 850 MG TAB PO SCH ×2 (09:42→16:49)
[2021-04-04] MEDS: GABAPENTIN 300 MG CAP PO SCH ×2 (09:42→13:00)
[2021-04-04] MEDS: DULoxetine 30 MG CAP PO SCH (09:42)
[2021-04-04] MEDS: INSULIN NPH/REGULAR 70/30 INJ SUB-Q SCH ×2 (09:43→16:49)
[2021-04-04] MEDS: INSULIN REGULAR, HUMAN 100 UNITS/1 ML SUB-Q SCH ×3 (09:43→16:50)
[2021-04-04] MEDS: MORPHINE 2 MG/1 ML INJ IV PRN (09:55)
--- NOTE | 2021-04-04 13:06 | Progress Note ---
Assessment and Plan 50-year-old white male with known history of hypertension, diabetes mellitus who presents to the emergency room for suicidal ideations was found to have elevated blood glucose and admitted for DKA and suicidal ideation. -- DKA (diabetic ketoacidoses) Patient was started on IV fluid and also given insulin. Blood glucose has improved significantly with improvement in anion gap. We will monitor Accu-Cheks closely. hemoglobin A1c 13.3 Patient will also receive diabetic education. Continue to adjust insulin dose for better glycemic control -- Suicidal ideations, highly suspicious for malingering as patient is currently homeless without any job or family support Patient placed on suicide precautions. Patient currently on 1013. Consult placed to mental health for further evaluation and recommendation. -- Hypertension: Blood pressure stable resumed routine home medications once reconciled. -- DVT prophylaxis Patient placed on subcutaneous heparin. --Full code status Patient is full code. Daily clinical course: 03/29/21: BG improved. Continue to adjust insulin dose for better glycemic control. Patient with clinical safety specialist, psych consulted -pending evaluation. We will transfer to telemetry. Patient states that he is ready to start a sexual offender, homeless and jobless. branch operations manager consulted for assistance. 03/30/21: Patient blood glucose at 500s today. Start IV fluid, increase insulin doses, monitor carefully. Psych evaluation pending. branch operations manager working on placement issue 03/31/21; patient has not been seen by psych yet. Patient has been clinically stable. Continue to adjust insulin dose. Patient is medically stable for discharge. Wait for psychiatric clearance for discharge planning. 04/01/21; patient was evaluated by psychiatry and did not recommend any inpatient psych admission. Discussed plan of care with patient thoroughly and he verbalized understanding. Patient blood glucose remains above 350 despite of increasing swelling 70/30 doses. We will continue to adjust insulin dose to keep serum blood glucose below 300. Will DC the patient home when blood glucose goal achieved. 04/02/21: Psych extended patient's 1013. Continue to monitor patient blood glucose and adjust insulin dose as needed patient is medically stable further diabetic care could be done as outpatient.. Waiting on psych clearance for discharge. 04/03/21: Patient was caught keeping small sugar packets with him and eating sugars to make his BG high. Patient was instructed and advised not to eat sugar because that will make his blood glucose to go high. Patient verbalized understanding. Now waiting on psych clearance for discharge. He was given all community information for assistance. Subjective Date of service: 04/03/21 Interval history: Patient seen and examined. Medical records and medication list reviewed. No acute event overnight noted by the RN. Patient denies any chest pain or difficulty breathing. psych continued 1013 Discussed plan of care at bedside with patient. Objective - Exam Narrative Exam: General appearance: Present: no acute distress, well-nourished - EENT Eyes: Present: PERRL, EOM intact. Absent: scleral icterus ENT: hearing intact, clear oral mucosa, dentition normal - Neck Neck: Present: supple, normal ROM - Respiratory Respiratory effort: normal Respiratory: bilateral: CTA - Cardiovascular Rhythm: regular Heart Sounds: Present: S1 & S2. Absent: gallop, systolic murmur, diastolic murmur, rub, click - Extremities Extremities: no ischemia, pulses intact, pulses symmetrical, No edema, normal temperature, normal color, Full ROM Peripheral Pulses: within normal limits - Abdominal General gastrointestinal: Present: soft, non-tender, non-distended, normal bowel sounds. Absent: mass - Integumentary Integumentary: Present: clear, warm, dry. Absent: rash - Musculoskeletal Musculoskeletal: strength equal bilaterally - Psychiatric Psychiatric: appropriate mood/affect, intact judgment & insight, memory intact, cooperative - Neurologic Neurologic: CNII-XII intact, no focal deficits, moves all extremities - Constitutional Vitals: Vital Signs - 12hr 04/04/21 04/04/21 05:34 11:05 Temperature 97.8 F 98.3 F Pulse Rate 75 86 Respiratory 18 18 Rate Blood Pressure 126/86 118/73 O2 Sat by Pulse 98 96 Oximetry - Labs CBC & Chem 7: 03/28/21 18:52 04/04/21 05:22 Labs: Abnormal lab results 04/03/21 04/03/21 04/04/21 Range/Units 16:27 23:33 05:22 Chloride 97.7 L (98-107) mmol/L Creatinine 0.6 L (0.8-1.3) mg/dL Glucose 300 H (75-100) mg/dL POC Glucose 195 H 227 H (70-105) mg/dL Magnesium 1.50 L (1.7-2.3) mg/dL 04/04/21 04/04/21 04/04/21 Range/Units 05:30 07:27 11:15 Chloride (98-107) mmol/L Creatinine (0.8-1.3) mg/dL Glucose (75-100) mg/dL POC Glucose 313 H 366 H 354 H (70-105) mg/dL Magnesium (1.7-2.3) mg/dL
--- NOTE | 2021-04-04 13:07 | Progress Note ---
Assessment and Plan 50-year-old white male with known history of hypertension, diabetes mellitus who presents to the emergency room for suicidal ideations was found to have elevated blood glucose and admitted for DKA and suicidal ideation. -- DKA (diabetic ketoacidoses) Patient was started on IV fluid and also given insulin. Blood glucose has improved significantly with improvement in anion gap. We will monitor Accu-Cheks closely. hemoglobin A1c 13.3 Patient will also receive diabetic education. Continue to adjust insulin dose for better glycemic control -- Suicidal ideations, highly suspicious for malingering as patient is currently homeless without any job or family support Patient placed on suicide precautions. Patient currently on 1013. Consult placed to mental health for further evaluation and recommendation. -- Hypertension: Blood pressure stable resumed routine home medications once reconciled. -- DVT prophylaxis Patient placed on subcutaneous heparin. --Full code status Patient is full code. Daily clinical course: 03/29/21: BG improved. Continue to adjust insulin dose for better glycemic control. Patient with director safety, psych consulted -pending evaluation. We will transfer to telemetry. Patient states that he is ready to start a sexual offender, homeless and jobless. paper mill manager consulted for assistance. 03/30/21: Patient blood glucose at 500s today. Start IV fluid, increase insulin doses, monitor carefully. Psych evaluation pending. paper mill manager working on placement issue 03/31/21; patient has not been seen by psych yet. Patient has been clinically stable. Continue to adjust insulin dose. Patient is medically stable for discharge. Wait for psychiatric clearance for discharge planning. 04/01/21; patient was evaluated by psychiatry and did not recommend any inpatient psych admission. Discussed plan of care with patient thoroughly and he verbalized understanding. Patient blood glucose remains above 350 despite of increasing swelling 70/30 doses. We will continue to adjust insulin dose to keep serum blood glucose below 300. Will DC the patient home when blood glucose goal achieved. 04/02/21: Psych extended patient's 1013. Continue to monitor patient blood glucose and adjust insulin dose as needed patient is medically stable further diabetic care could be done as outpatient.. Waiting on psych clearance for discharge. 04/03/21: Patient was caught keeping small sugar packets with him and eating sugars to make his BG high. Patient was instructed and advised not to eat sugar because that will make his blood glucose to go high. Patient verbalized understanding. Now waiting on psych clearance for discharge. He was given all community information for assistance. 04/04/21: Psych recommended inpatient psych placement, continue to follow clinically and await for inpatient psych placement. Subjective Date of service: 04/04/21 Objective - Constitutional Vitals: Vital Signs - 12hr 04/04/21 04/04/21 05:34 11:05 Temperature 97.8 F 98.3 F Pulse Rate 75 86 Respiratory 18 18 Rate Blood Pressure 126/86 118/73 O2 Sat by Pulse 98 96 Oximetry - Labs CBC & Chem 7: 03/28/21 18:52 04/04/21 05:22 Labs: Abnormal lab results 04/03/21 04/03/21 04/04/21 Range/Units 16:27 23:33 05:22 Chloride 97.7 L (98-107) mmol/L Creatinine 0.6 L (0.8-1.3) mg/dL Glucose 300 H (75-100) mg/dL POC Glucose 195 H 227 H (70-105) mg/dL Magnesium 1.50 L (1.7-2.3) mg/dL 04/04/21 04/04/21 04/04/21 Range/Units 05:30 07:27 11:15 Chloride (98-107) mmol/L Creatinine (0.8-1.3) mg/dL Glucose (75-100) mg/dL POC Glucose 313 H 366 H 354 H (70-105) mg/dL Magnesium (1.7-2.3) mg/dL
[2021-04-04] MEDS ORDERED: SODIUM CHLORIDE 0.9% 1000 ML 1,000 ML IV ONE (13:37)
--- NOTE | 2021-04-04 15:22 | Progress Note ---
Subjective - Reason for Consult Consult date: 04/04/21 Reason for consult: sucidal ideation - Chief Complaint Chief complaint: Patient was seen resting quietly in bed today. In my interview with patient, he reports doing well. States sleep and appetite as good. Patient states his depression is situational and states he is alright. He denies any current suicidal/ homicidal ideation and denies hallucinations. REVIEW OF SYSTEMS Constitutional: Negative for weight loss ENT: Negative for stridor Respiratory: Negative for cough or hemoptysis All other systems reviewed and are negative MENTAL STATUS EXAMINATION General Appearance and Behavior: Age appropriate, good hygiene, wearing appropriate clothes, uncooperative polite with questioning. Cooperation: cooperative Psychomotor Behavior: Psychomotor agitation Mood: "alright" Affect and affective range: congruent with stated mood Thought Process: circumstantial Thought Content: denies SI Speech: Normal volume, Regular rate and rhythm Intellectual Functioning: Average Suicidal Ideation: denied Homicidal Ideation: Denied Impulse Control: impaired Insight and Judgment: Good Memory: Normal Attention:Distractible Orientation: Alert and oriented Diagnoses: Major depressive Disorder Current Visit: Yes Status: Acute F33.1 RECOMMENDATIONS: DC 1013 Continue- Duloxetin 30mg po BID Continue- Gabapentin 300mg po TID Risks, benefits and alternatives of medications discussed with the patient, questions answered and consent obtained from patient. PSYCHOTHERAPY: Supportive psychotherapy provided MEDICAL: Per primary team DELIRIUM PRECAUTIONS: Please re-orient patient frequently, keep lights on during the day, and minimize benzodiazepines and opiates as these medications could worsen patient's confusion. EMPLOYEE COMMUNICATIONS INTERN: Per medical team DISPOSITION:Do not recommend inpatient psychiatric hospitalization. FOLLOW-UP:Will sign off. The patient understands that if suicidal/homicidal ideas, or any endangering thoughts arise, the patient should immediately seek for emergent assistance including but not limited to crisis hot line and emergency hotline and emergency room. Patient verbalized understanding what was discussed. Mental Status Exam - Vital signs Last Vital Signs Temp 98.3 F 04/04/21 11:05 Pulse 86 04/04/21 11:05 Resp 18 04/04/21 11:05 BP 118/73 04/04/21 11:05 Pulse Ox 96 04/04/21 11:05
[2021-04-04 17:12] VITALS: BP 130/77
== END 2021-04-04 18:30 | disposition home or self-care (01) | DRG 638 ==
LOC: ED 16:14 → CC1 21:41 → 3A 22:46 → 4A 03-29 02:40 → IMCU 03-29 04:08 → OBSVTOIN 03-29 11:53 → 3A 03-29 20:27
PROVIDERS: ADMIT Internal Medicine Geriatric Medicine; ATTEND Internal Medicine
DX: E11.10 Type 2 diabetes mellitus with ketoacidosis without coma (principal); R45.851 Suicidal ideations; E83.42 Hypomagnesemia; Z20.822 Contact with and (suspected) exposure to COVID-19; I10 Essential (primary) hypertension; F32.9 Major depressive disorder, single episode, unspecified; Z79.899 Other long term (current) drug therapy; Z90.49 Acquired absence of other specified parts of digestive tract; Z79.4 Long term (current) use of insulin
CPT/HCPCS: 36415; 80048; 80053; 80307; 80320; 81001; 82010; 82805; 82962; 83036; 83735; 84100; 85025; 96361; 96374; G0378; G0480; J1644; J1815; J2270; J3475; J7030; J7120; U0003